=== PATIENT | female | born 1940 | race Hispanic/Latino ===

== ENCOUNTER 2018-07-13 09:28 | Emergency (ER) | payer OTHER ==
--- NOTE | 2018-07-13 10:54 | RAD REPORT ---
EXAM DESCRIPTION: RAD - Knee Right 3 View - 07/13/2018 10:06 am CLINICAL HISTORY: Fall, blunt force trauma to the knee COMPARISON: None. FINDINGS: No gross fracture deformity is seen. However, underlying osteopenia is limiting. This is p articularly true of the lateral tibial plateau. Patient has a joint effusion. Fat fluid level is not clearly identifiable on plain film. Medial and lateral compartment degenerative spurring changes are present along with spurring of the tibial spine. Spurring or tendon calcifications seen at the bennett ceps attachment to the patella. Medial and lateral compartments are slightly narrowed. Dense arterial tree calcifications are present. No foreign body in the soft tissues. IMPRESSION: No gross fracture deformity seen; however, underlying osteopenia limits assessment. This is particularly true in the lateral tibial plateau. Joint effusion is present which can be indirect evidence for acute bony injury. CT imaging of the knee could be performed to evaluate for possible fracture if patient symptoms sugge st fracture. Outpatient MR imaging could be utilized for both occult bony injury assessment and inter nal derangement of the joint.
[2018-07-13] MEDS ORDERED: MEPERIDINE HCL 25 MG/0.5 ML ONE (11:15)
--- NOTE | 2018-07-13 12:04 | RAD REPORT ---
EXAM DESCRIPTION: CT - Knee Right Wo Cont - 07/13/2018 11:42 am CLINICAL HISTORY: Trip and fall, knee pain, abnormal plain films, limited range of motion COMPARISON: Right knee films same date TECHNIQUE: Axial 2 millimeter thick images of the right knee were obtained with sagittal and coronal reformatted images generated and reviewed. The CT scan was performed using dose optimization techniques as appropriate to a performed exam incl uding one or more of the following: Automated exposure control, adjustment of the mA and/or kV accord ing to patient size (this includes techniques or standardized protocols for targeted exams where dose is matched to indication/reason for exam) and use of iterative reconstruction technique. FINDINGS: Distal femur shows no acute fracture change. Knee as a whole is osteopenic. Moderate to la rge marginal spurs are present in both the medial and lateral compartment as well as along the interc ondylar notch. Patella is normally positioned. There are degenerative marginal spurs present. Patella fracture is not seen. Tendon calcification is seen in the distal aspect of the quadriceps tendon at the attachment. No patella tendon injury identifiable. Large lateral tibial plateau marginal spurring present. There are sclerotic changes along the articul ar surface posterior margin of the lateral tibial plateau. No proximal tibia fracture confirmed. Ther e is depression along the posterior margin of the medial tibial plateau without associated fracture l ine. This could be from old trauma. Meniscus and ligament assessment cannot be accurately made on CT imaging. Small to moderate joint effusion is present. No fat fluid level identifiable. IMPRESSION: No acute fracture changes confirmed on this study. Patient has osteopenic and significan t underlying degenerative change. Bone bruising as a source for pain cannot be excluded. Meniscus and ligament injuries cannot be evalu ated on CT imaging. Up to moderate size joint effusion is present without fat fluid level identifiable.
--- NOTE | 2018-07-13 12:11 | ER ---
Nurse's Notes [facility] Name: Hannah Coreas Age: 78 yrs Sex: Female : 1940 Arrival Date: 07/13/2018 Time: 09:35 Bed 20 Private MD: Diagnosis: Contusion of right knee Presentation: 07/13 09:35 Presenting complaint: EMS states: pt tripped last night and landed on Lars. knees, em denies dizziness or LOC, limited ROM on right knee, bruising noted to right knee, denies any other complaint. Transition of care: patient was not received from another setting of care. Onset of symptoms was July 12, 2018. Risk Assessment: Do you want to hurt yourself or someone else? Patient reports no desire to harm self or others. Initial Sepsis Screen: Does the patient meet any 2 criteria? No. Patient's initial sepsis screen is negative. Does the patient have a suspected source of infection? No. Patient's initial sepsis screen is negative. Care prior to arrival: None. 09:35 Method Of Arrival: EMS: [facility] em 09:38 Acuity: FABIANA 4 iw Triage Assessment: 09:41 General: Appears in no apparent distress. uncomfortable, Behavior is calm, cooperative. em Pain: Complains of pain in right knee Pain currently is 10 out of 10 on a pain scale. Historical: - Allergies: 09:41 Codeine; em - Home Meds: :41 amlodipine 10 mg tab 1 tab once daily [Active]; Namenda 10 mg Oral tab 1 tab 2 times em per day [Active]; levothyroxine 75 mcg tab 1 tab once daily [Active]; sotalol 80 mg Oral tab 1 tab 2 times per day [Active]; Xarelto 20 mg Oral tab 1 tab once daily [Active]; furosemide 40 mg Oral tab 1 tab once daily [Active]; hydralazine 50 mg Oral tab 1 tab 2 times per day [Active]; potassium chloride 10 mEq Oral TbTQ 1 tab once daily [Active]; metformin 1,000 mg Oral tab 1 tab 2 times per day [Active]; - PMHx: 09:41 Atrial Fib; COLON CA; Diabetes - IDDM; Hypertension; em - PSHx: 09:41 ; em - Immunization history:: Flu vaccine is not up to date. - Social history:: Smoking status: Patient/guardian denies using tobacco. - Family history:: not pertinent. - Ebola Screening: : Patient negative for fever greater than or equal to 101.5 degrees Fahrenheit, and additional compatible Ebola Virus Disease symptoms Patient denies exposure to infectious person Patient denies travel to an Ebola-affected area in the 21 days before illness onset No symptoms or risks identified at this time. - Hospitalizations: : No recent hospitalization is reported. Screenin:41 Abuse screen: Denies threats or abuse. Nutritional screening: No deficits noted. em Tuberculosis screening: No symptoms or risk factors identified. Fall Risk None identified. Assessment: 09:41 General: Appears in no apparent distress. uncomfortable, Behavior is calm, cooperative. em Pain: Complains of pain in right knee Pain currently is 10 out of 10 on a pain scale. Pain began 1 day ago. Neuro: Level of Consciousness is awake, alert, obeys commands, Oriented to person, place, time, situation, Denies weakness dizziness, headache. Cardiovascular: Patient's skin is warm and dry. Respiratory: Airway is patent Respiratory effort is even, unlabored, Respiratory pattern is regular, symmetrical. Derm: Bruising that is on right knee. Musculoskeletal: Range of motion: limited in right knee Swelling present in right knee. 10:48 Reassessment: Patient appears in no apparent distress at this time. Patient and/or em family updated on plan of care and expected duration. Pain level reassessed. Patient is alert, oriented x 3, equal unlabored respirations, skin warm/dry/pink. 12:00 Reassessment: Patient appears in no apparent distress at this time. Patient and/or em family updated on plan of care and expected duration. Pain level reassessed. Patient is alert, oriented x 3, equal unlabored respirations, skin warm/dry/pink. 13:04 Reassessment: Patient appears in no apparent distress at this time. Patient and/or em family updated on plan of care and expected duration. Pain level reassessed. Patient is alert, oriented x 3, equal unlabored respirations, skin warm/dry/pink. pt soiled, removed old brief, cleaned and wiped, placed in new gown, pending daughter for transportation Patient states feeling better. Vital Signs: 09:41 BP 148 / 60; Pulse 77; Resp 16; Pulse Ox 95% on R/A; Weight 63.5 kg; Height 5 ft. 4 in. em (162.56 cm); Pain 10/10; 10:42 BP 152 / 64; Pulse 88; Resp 16; Pulse Ox 96% on R/A; em 12:00 BP 150 / 58; Pulse 73; Resp 18; Pulse Ox 99% on R/A; em 13:21 BP 148 / 63; Pulse 74; Resp 16; Pulse Ox 97% on R/A; Pain 5/10; em 09:41 Body Mass Index 24.03 (63.50 kg, 162.56 cm) em ED Course: 09:35 Patient arrived in ED. em 09:35 Gerardo Bragg MD is Attending Physician. rn 09:41 Arm band placed on. em 09:41 Patient has correct armband on for positive identification. Bed in low position. Call em light in reach. Side rails up X2. Adult w/ patient. Pulse ox on. NIBP on. 10:03 Triage completed. iw 10:42 Bunny Arciniega LVN is Primary Nurse. em 10:51 XRAY Knee RIGHT 3 view In Process Unspecified. EDMS 11:44 Knee Right Wo Cont In Process Unspecified. EDMS 13:27 No provider procedures requiring assistance completed. Patient did not have IV access em during this emergency room visit. Administered Medications: 11:08 Drug: Demerol 25 mg Route: IM; Site: right deltoid; em 13:30 Follow up: Response: No adverse reaction; Pain is decreased em Outcome: 12:10 Discharge ordered by MD. rn 13:27 Discharged to home via wheelchair. em 13:27 Condition: good 13:27 Discharge instructions given to patient, family, Instructed on discharge instructions, follow up and referral plans. Demonstrated understanding of instructions, follow-up care. 14:05 Patient left the ED. em Signatures: Dispatcher [employer] EDMS Bunny Arciniega LVN LVN em Sharlene Storm RN RN iw Gerardo Bragg MD MD rn
--- NOTE | 2018-07-13 12:12 | EDPHYS ---
Physician Documentation [facility] Name: Hannah Coreas Age: 78 yrs Sex: Female : 1940 Arrival Date: 07/13/2018 Time: 09:35 Bed 20 Private MD: ED Physician Gerardo Bragg HPI: 07/13 09:36 This 78 yrs old Female presents to ER via Unassigned with complaints of right rn knee pain. 09:36 The patient presents with pain. The complaints affect the right knee. Onset: The rn symptoms/episode began/occurred last night. Modifying factors: The symptoms are alleviated by nothing. the symptoms are aggravated by movement, weight bearing, bending knee. Severity of symptoms: At their worst the symptoms were moderate, in the emergency department the symptoms are unchanged. The patient has not experienced similar symptoms in the past. Reports someone at her door last night, got up from recliner, fell forward onto knees, reports hurts to walk and bend knee, + right knee pain, denies other injury or pain. . Historical: - Allergies: 09:41 Codeine; em - Home Meds: 09:41 amlodipine 10 mg tab 1 tab once daily [Active]; Namenda 10 mg Oral tab 1 tab 2 times em per day [Active]; levothyroxine 75 mcg tab 1 tab once daily [Active]; sotalol 80 mg Oral tab 1 tab 2 times per day [Active]; Xarelto 20 mg Oral tab 1 tab once daily [Active]; furosemide 40 mg Oral tab 1 tab once daily [Active]; hydralazine 50 mg Oral tab 1 tab 2 times per day [Active]; potassium chloride 10 mEq Oral TbTQ 1 tab once daily [Active]; metformin 1,000 mg Oral tab 1 tab 2 times per day [Active]; - PMHx: 09:41 Atrial Fib; COLON CA; Diabetes - IDDM; Hypertension; em - PSHx: 09:41 ; em - Immunization history:: Flu vaccine is not up to date. - Social history:: Smoking status: Patient/guardian denies using tobacco. - Family history:: not pertinent. - Ebola Screening: : Patient negative for fever greater than or equal to 101.5 degrees Fahrenheit, and additional compatible Ebola Virus Disease symptoms Patient denies exposure to infectious person Patient denies travel to an Ebola-affected area in the 21 days before illness onset No symptoms or risks identified at this time. - Hospitalizations: : No recent hospitalization is reported. ROS: 09:36 Neck: Negative for injury, pain, and swelling, Cardiovascular: Negative for chest pain, rn palpitations, and edema, Respiratory: Negative for shortness of breath, cough, wheezing, and pleuritic chest pain, Abdomen/GI: Negative for abdominal pain, nausea, vomiting, diarrhea, and constipation, Back: Negative for injury and pain, MS/Extremity: + right knee pain and injury Skin: Negative for injury, rash, and discoloration, Neuro: Negative for headache, weakness, numbness, tingling, and seizure. Exam: 09:36 Constitutional: This is a well developed, well nourished patient who is awake, alert, rn and in no acute distress. Head/Face: Normocephalic, atraumatic. Neck: No neck tenderness MS/ Extremity: Pulses equal, no cyanosis. Neurovascular intact. + mild pain with ROM of right knee with contusion, no open wounds, no hip pain or tenderness, no ankle/foot tenderness. Neuro: Awake and alert, GCS 15, oriented to person, place, time, and situation. Cranial nerves II-XII grossly intact. Motor strength 5/5 in all extremities. Sensory grossly intact. Vital Signs: 09:41 BP 148 / 60; Pulse 77; Resp 16; Pulse Ox 95% on R/A; Weight 63.5 kg; Height 5 ft. 4 in. em (162.56 cm); Pain 10/10; 10:42 BP 152 / 64; Pulse 88; Resp 16; Pulse Ox 96% on R/A; em 12:00 BP 150 / 58; Pulse 73; Resp 18; Pulse Ox 99% on R/A; em 13:21 BP 148 / 63; Pulse 74; Resp 16; Pulse Ox 97% on R/A; Pain 5/10; em 09:41 Body Mass Index 24.03 (63.50 kg, 162.56 cm) em MDM: 09:35 Patient medically screened. rn 12:09 Differential diagnosis: closed fracture, contusion. Data reviewed: vital signs, nurses rn notes, radiologic studies, CT scan, plain films, and as a result, I will discharge patient. Counseling: I had a detailed discussion with the patient and/or guardian regarding: the historical points, exam findings, and any diagnostic results supporting the discharge/admit diagnosis, lab results, radiology results, the need for outpatient follow up, to return to the emergency department if symptoms worsen or persist or if there are any questions or concerns that arise at home. Response to treatment: the patient's symptoms have mildly improved after treatment, and as a result, I will discharge patient. Special discussion: I discussed with the patient/guardian in detail that at this point there is no indication for admission to the hospital. It is understood, however, that if the symptoms persist or worsen the patient needs to return immediately for re-evaluation. 07/13 09:36 Order name: XRAY Knee RIGHT 3 view; Complete Time: 10:56 rn 07/13 11:02 Order name: Knee Right Wo Cont; Complete Time: 12:09 EDMS Administered Medications: 11:08 Drug: Demerol 25 mg Route: IM; Site: right deltoid; em 13:30 Follow up: Response: No adverse reaction; Pain is decreased em Disposition: 07/13/18 12:10 Discharged to Home. Impression: Contusion of right knee. - Condition is Stable. - Discharge Instructions: Knee Pain. - Medication Reconciliation Form, Thank You Letter, Antibiotic Education, Prescription Opioid Use form. - Follow up: Private Physician; When: As needed; Reason: Recheck today's complaints, Re-evaluation by your physician. - Problem is new. - Symptoms have improved. Signatures: Dispatcher [employer] Bunny Hilliard, CONTRACT ATTORNEY CONTRACT ATTORNEY Gerardo Feliciano MD MD international relations professor: (The following items were deleted from the chart) 14:05 12:10 07/13/2018 12:10 Discharged to Home. Impression: Contusion of right knee. em Condition is Stable. Forms are Medication Reconciliation Form, Thank You Letter, Antibiotic Education, Prescription Opioid Use. Follow up: Private Physician; When: As needed; Reason: Recheck today's complaints, Re-evaluation by your physician. Problem is new. Symptoms have improved. rn
[2018-07-13 14:15] VITALS: BP 148/63; O2SAT 97
== END 2018-07-13 14:05 | disposition home or self-care (01) ==
LOC: ER 09:28
DX: S80.01XA Contusion of right knee, initial encounter (principal); W19.XXXA Unspecified fall, initial encounter; Y93.89 Activity, other specified; Y92.9 Unspecified place or not applicable; Z79.01 Long term (current) use of anticoagulants; Z88.5 Allergy status to narcotic agent; Z85.038 Personal history of other malignant neoplasm of large intestine; I10 Essential (primary) hypertension; E11.9 Type 2 diabetes mellitus without complications; I48.91 Unspecified atrial fibrillation
CPT/HCPCS: 73562; 73700; J2175

== ENCOUNTER 2019-03-27 17:52 | Inpatient (IN) | payer OTHER ==
[2019-03-27] MEDS ORDERED: SOTALOL HCL 80 MG TAB ONE (18:18)
--- NOTE | 2019-03-27 18:27 | RAD REPORT ---
EXAM DESCRIPTION: RAD - Chest Single View - 03/27/2019 6:15 pm CLINICAL HISTORY: PALPITATIONS Chest pain. COMPARISON: Chest Single View dated 08/12/2017; Chest Single View dated 07/02/2017; CHEST SINGLE VIEW d ated 08/09/2015; CHEST SINGLE VIEW dated 07/28/2015 FINDINGS: Portable technique limits examination quality. Emphysematous changes are present throughout the lungs. A small ill-defined opacity the right lower l obe and left parahilar region may represent developing infiltrate. The heart is mildly to moderately enlarged. No displaced fractures.Aortic atherosclerosis.
[2019-03-27] MEDS ORDERED: METOPROLOL TARTRATE 5 MG/5 ML INJ IV ONE (18:44)
[2019-03-27 18:56] LABS: Protime INR 1.31
[2019-03-27 19:18] LABS: ALT/SGPT 15 U/L (12-78); AST/SGOT 16 U/L (15-37); Albumin 3.1 g/dL (3.4-5.0); Alkaline Phosphatase 92 U/L (45-117); BUN Blood Urea Nitrogen 13 mg/dL (7-18); Basophils % 0.7 % (0-1.3); Bicarbonate 20 mmol/L (21-32); Bilirubin Direct 0.2 mg/dL (0-0.2); Bilirubin Total 0.7 mg/dL (0.2-1.0); Glucose Level 267 mg/dL (74-106); Hematocrit 41.6 % (36.0-45.0); Lymphocytes % 8.9 % (15.3-44.8); MPV 10.5 fL (7.6-11.3); NT PRO-BNP 1206 pg/mL (<450); Potassium 3.7 mmol/L (3.5-5.1); Protein, Total 7.3 g/dL (6.4-8.2); RBC Red Blood Cell Count 4.42 M/uL (3.86-4.86); Sodium Level 137 mmol/L (136-145); Troponin (Emerg Dept Use Only) < 0.02 ng/mL (0.0-0.045)
[2019-03-27 19:38] LABS: Magnesium 1.1 mg/dL (1.8-2.4)
[2019-03-27] MEDS ORDERED: Magnesium Sulfate 2gm IVPB 2 G/50 ML BAG IV ONE (19:39)
--- NOTE | 2019-03-27 20:58 | ER ---
Nurse's Notes [facility] Name: Hannah Coreas Age: 78 yrs Sex: Female : 1940 Arrival Date: 03/27/2019 Time: 18:03 Bed 4 Private MD: Diagnosis: Atrial fibrillation and flutter-with RVR;Hypomagnesemia Presentation: 03/27 18:04 Presenting complaint: Patient states: c/o generalized weakness and palpitations while iw at [facility] today. EMS arrived to scene and pt HR was in 180's, hx of Afib, currently takes sotalol and xarelto. Transition of care: patient was not received from another setting of care. Onset of symptoms was March 27, 2019. Risk Assessment: Do you want to hurt yourself or someone else? Patient reports no desire to harm self or others. Initial Sepsis Screen: Does the patient meet any 2 criteria? No. Patient's initial sepsis screen is negative. Does the patient have a suspected source of infection? No. Patient's initial sepsis screen is negative. Care prior to arrival: Medication(s) given: diltiazem 10 mg IVP to RAC, IV infiltrated shortly after push given IV initiated. 20 GA, in the left antecubital area. 18:04 Method Of Arrival: EMS: [facility] iw 18:04 Acuity: FABIANA 2 iw 18:11 Care prior to arrival: Glucose check: 285. iw Historical: - Allergies: 18:10 Codeine; iw - Home Meds: 18:54 amlodipine 10 mg tab 1 tab once daily [Active]; aspirin 81 mg Oral chew 1 tab once iw daily [Active]; carvedilol 6.25 mg Oral tab 1 tab 2 times per day [Active]; furosemide 40 mg Oral tab 1 tab once daily [Active]; hydralazine 50 mg Oral tab 1 tab 2 times per day [Active]; levothyroxine 75 mcg tab 1 tab once daily [Active]; metformin 1,000 mg Oral tab 1 tab 2 times per day [Active]; Namenda 10 mg Oral tab 1 tab 2 times per day [Active]; potassium chloride 10 mEq Oral TbTQ 1 tab once daily [Active]; sotalol 80 mg Oral tab 1 tab 2 times per day [Active]; Toujeo SoloStar 300 unit/mL (1.5 mL) subcutaneous inpn 50 units daily [Active]; Vesicare 5 mg Oral tab 0.5 tab once daily [Active]; Xarelto 20 mg Oral tab 1 tab once daily [Active]; - PMHx: 18:10 Atrial Fib; COLON CA; Diabetes - IDDM; Hypertension; iw - PSHx: 18:10 ; iw - Immunization history:: Adult Immunizations up to date. - Social history:: Smoking status: Patient/guardian denies using tobacco. - Ebola Screening: : Patient negative for fever greater than or equal to 101.5 degrees Fahrenheit, and additional compatible Ebola Virus Disease symptoms Patient denies exposure to infectious person Patient denies travel to an Ebola-affected area in the 21 days before illness onset No symptoms or risks identified at this time. - Family history:: not pertinent. - Hospitalizations: : No recent hospitalization is reported. Screenin:11 Abuse screen: Denies threats or abuse. Denies injuries from another. Nutritional iw screening: No deficits noted. Tuberculosis screening: No symptoms or risk factors identified. Fall Risk IV access (20 points). Assessment: 18:05 General: Appears in no apparent distress. comfortable, Behavior is calm, cooperative. iw General: Denies fever, chills. Pain: Denies pain. Neuro: Level of Consciousness is awake, alert, obeys commands, Oriented to person, place, time, situation, Moves all extremities. Cardiovascular: Patient's skin is warm and dry. Cardiovascular: Denies chest pain, lightheadedness, nausea, syncope, Pulses are all present. Rhythm is atrial fibrillation with rapid ventricular response. Respiratory: Respiratory effort is even, unlabored, Respiratory pattern is regular. GI: Abdomen is non-distended, Abd is soft X 4 quads Abd is non tender X 4 quads. Derm: Skin is fragile, is thin, Skin is dry. Musculoskeletal: Range of motion: intact in all extremities. 18:26 Reassessment: Patient appears in no apparent distress at this time. Patient and/or iw family updated on plan of care and expected duration. Pain level reassessed. Patient is alert, oriented x 3, equal unlabored respirations, skin warm/dry/pink. 19:15 Reassessment: Patient appears in no apparent distress at this time. Patient and/or cc3 family updated on plan of care and expected duration. Pain level reassessed. Patient is alert, oriented x 3, equal unlabored respirations, skin warm/dry/pink. Received this female patient from morning shift RN Sharlene as a case of palpitations, known case of Afib. With IV cannula gauge 20 at the right ACV saline locked, another IV cannula gauge 20 at the left ACV saline locked. Patient denies pain at this time. Patient states feeling better. General: Appears in no apparent distress. comfortable, Behavior is calm, cooperative, appropriate for age. Pain: Denies pain. Neuro: Level of Consciousness is awake, alert, obeys commands, Oriented to person, place, time, situation, Appropriate for age Assistant Professor Of Dietetics are equal bilaterally Moves all extremities. Speech is normal, Facial symmetry appears normal, Pupils are PERRLA, Intact. Cardiovascular: Denies chest pain, Heart tones S1 S2 present Capillary refill < 3 seconds Patient's skin is warm and dry. Pulses are all present. Rhythm is atrial fibrillation. Respiratory: Airway is patent Respiratory effort is even, unlabored, Respiratory pattern is regular, symmetrical, Breath sounds are clear bilaterally. GI: Abdomen is round non-distended, Abd is soft X 4 quads Abd is non tender X 4 quads. : No signs and/or symptoms were reported regarding the genitourinary system. EENT: No signs and/or symptoms were reported regarding the EENT system. Derm: Skin is fragile, is thin, Skin is dry, Skin is pink, warm \T\ dry. normal. Musculoskeletal: Range of motion: intact in all extremities. 19:35 Reassessment: Laboratory staff Lashonda called for critical result of Magnesium which cc3 is 1.1 SALES REPRESENTATIVE PRINTING PAPER Grace informed. 20:05 Reassessment: Patient appears in no apparent distress at this time. Patient and/or cc3 family updated on plan of care and expected duration. Pain level reassessed. Patient is alert, oriented x 3, equal unlabored respirations, skin warm/dry/pink. Patient denies pain at this time. 21:05 Reassessment: Patient appears in no apparent distress at this time. Patient and/or cc3 family updated on plan of care and expected duration. Pain level reassessed. Patient is alert, oriented x 3, equal unlabored respirations, skin warm/dry/pink. Dr. Huynh at bedside. 22:11 Reassessment: Patient appears in no apparent distress at this time. Patient and/or aa1 family updated on plan of care and expected duration. Pain level reassessed. Patient is alert, oriented x 3, equal unlabored respirations, skin warm/dry/pink. Attempted to call report to floor, was told nurse will call back shortly. 22:18 Reassessment: Report called to ERMIAS Mercado. aa1 22:50 Reassessment: Patient appears in no apparent distress at this time. Patient and/or cc3 family updated on plan of care and expected duration. Pain level reassessed. Patient is alert, oriented x 3, equal unlabored respirations, skin warm/dry/pink. Patient left ER for admission vitally stable by stretcher escorted by outer diameter technician Malik and the patient's daughter. No valuables left in the patient's room. Patient denies pain at this time. Patient states feeling better. Vital Signs: 18:09 BP 135 / 70; Pulse 135; Resp 18 S; Temp 98.6; Pulse Ox 98% on R/A; Pain 0/10; iw 18:26 BP 141 / 78; Pulse 157; Resp 18 S; Pulse Ox 98% on R/A; iw 18:33 BP 138 / 65; Pulse 150; Resp 18 S; Pain 0/10; ss 18:50 BP 128 / 70; Pulse 117; Resp 18 S; sg 19:05 BP 162 / 75; Pulse 134; Resp 18 S; Pulse Ox 98% on R/A; iw 19:15 BP 162 / 75; Pulse 139; Resp 19 S; Temp 97.7(O); Pulse Ox 94% on R/A; Pain 0/10; cc3 20:06 BP 128 / 76; Pulse 145; Resp 18 S; Pulse Ox 96% on R/A; cc3 21:45 BP 133 / 76; Pulse 133; Resp 21 S; Pulse Ox 96% on R/A; cc3 22:09 BP 139 / 87; Pulse 126; Resp 20; Pulse Ox 95% on R/A; Pain 0/10; aa1 22:45 BP 137 / 83; Pulse 130; Resp 18 S; Pulse Ox 96% ; Pain 0/10; cc3 Vitals: 18:34 Cardiac Rhythm Assessment Atrial fibrillation W/rapid ventricular response. ss 19:05 Cardiac Rhythm Assessment Atrial fibrillation W/rapid ventricular response. iw ED Course: 18:03 Patient arrived in ED. iw 18:04 Gerardo Bragg MD is Attending Physician. rn 18:09 Triage completed. iw 18:09 Arm band placed on. iw 18:10 XRAY Chest (1 view) In Process Unspecified. EDMS 18:11 Maintain EMS IV. Dressing intact. Good blood return noted. Site clean \T\ dry. Gauge \T\ iw site: 20 LAC. 18:25 Sharlene Storm, RN is Primary Nurse. iw 18:26 Maintain EMS IV. Dressing intact. Good blood return noted. Site clean \T\ dry. Gauge \T\ iw site: 20 RAC. 18:26 Initial lab(s) drawn, by me, sent to lab. ca1 18:32 Patient has correct armband on for positive identification. Bed in low position. Call ss light in reach. Side rails up X2. Adult w/ patient. desk monitor on. Pulse ox on. NIBP on. 19:33 Grace Lewis FNP-C is PHCP. snw 19:33 Magali Bhardwaj is Primary Nurse. cc3 20:56 Hector Huynh DO is Hospitalizing Provider. snw 22:11 No provider procedures requiring assistance completed. Patient admitted, IV remains in aa1 place. Administered Medications: 18:11 Drug: NS 0.9% 500 ml Route: IV; Rate: bolus; Site: left antecubital; iw 18:26 Drug: Sotalol 80 mg Route: PO; iw 19:15 Follow up: Response: No adverse reaction cc3 18:50 Drug: Metoprolol 5 mg Route: IVP; Site: left antecubital; sg 19:15 Follow up: Response: No adverse reaction cc3 18:55 Drug: Metoprolol 5 mg Route: IVP; Site: left antecubital; iw 19:15 Follow up: Response: No adverse reaction cc3 19:40 Drug: Magnesium Sulfate 2 grams Route: IVPB; Infused Over: 2 hrs; Site: left cc3 antecubital; 22:00 Follow up: Response: No adverse reaction; IV Status: Completed infusion; IV Intake: [id number] Intake: 22:00 IV: 50ml; Total: 50ml. cc3 Outcome: 20:57 Decision to Hospitalize by Provider. snw 22:18 Admitted to Tele accompanied by felecia, via stretcher, room 228, with chart, Report aa1 called to ERMIAS Mercado 22:18 Condition: stable 22:18 Instructed on the need for admit, Demonstrated understanding of instructions. 22:58 Patient left the ED. cc3 Signatures: Dispatcher [employer] EDMS Milan Turk RN RN sg Aye Eldridge RN RN aa1 Grace Lewis, EXTRUSION DIE CORRECTOR-C EXTRUSION DIE CORRECTOR-Csnw Sharlene Storm RN RN Gerardo Bragg MD MD rn Smirch, Shelby, RN RN Magali Bhardwaj cc3 Valeria Ashraf RN RN ca1 Corrections: (The following items were deleted from the chart) 18:50 18:50 BP 133 / 63; Pulse 117bpm; Resp 18bpm; Spontaneous; sg sg 18:52 18:05 General: Appears in no apparent distress. comfortable, Behavior is calm, iw cooperative, 18:52 18:05 Pain: Denies pain. [facility] 18:52 18:05 Neuro: Level of Consciousness is awake, alert, obeys commands, Oriented to iw person, place, time, situation, Moves all extremities. 18:52 18:05 Cardiovascular: Patient's skin is warm and dry. [facility] 18:52 18:05 Respiratory: Respiratory effort is even, unlabored, Respiratory pattern is iw regular, ss 18:52 18:05 Cardiovascular: Denies chest pain, lightheadedness, nausea, syncope, Pulses are iw all present. Rhythm is atrial fibrillation with rapid ventricular response 18:52 18:05 GI: Abdomen is non-distended, Abd is soft X 4 quads Abd is non tender X 4 quads [facility] 18:52 18:05 Derm: Skin is fragile, is thin, Skin is dry, iw 18:52 18:05 Musculoskeletal: Range of motion: intact in all extremities, [facility] 18:52 18:05 General: Denies fever, chills, iw 22:47 19:15 BP 162 / 75; Pulse 139bpm; Resp 19bpm; Spontaneous; Pulse Ox 94% RA; Temp 97.7F cc3 Oral; cc3
--- NOTE | 2019-03-27 20:59 | EDPHYS ---
Physician Documentation [facility] Name: Hannah Coreas Age: 78 yrs Sex: Female : 1940 Arrival Date: 03/27/2019 Time: 18:03 Bed 4 Private MD: ED Physician Gerardo Bragg HPI: 03/27 18:37 This 78 yrs old Female presents to ER via EMS with complaints of General rn Weakness, Palpitations. 18:37 The patient presents with a history of irregular heart beat, heart racing. Context: The rn symptoms occur with light activity. Onset: The symptoms/episode began/occurred today, 1 hour(s) ago. Duration: The patient or guardian reports a single episode, that is still ongoing. Modifying factors: The symptoms are aggravated by nothing. The symptoms are alleviated by nothing. Severity of symptoms: At their worst the symptoms were moderate in the emergency department the symptoms are unchanged. The patient has experienced similar episodes in the past. [facility], felt generalized weakness, palpitations, and started sweating. [place] fine prior. Denies sob and chest pain. NO abd pain. takes sotalol for afib. States compliant with meds. Historical: - Allergies: 18:10 Codeine; iw - Home Meds: 18:54 amlodipine 10 mg tab 1 tab once daily [Active]; aspirin 81 mg Oral chew 1 tab once iw daily [Active]; carvedilol 6.25 mg Oral tab 1 tab 2 times per day [Active]; furosemide 40 mg Oral tab 1 tab once daily [Active]; hydralazine 50 mg Oral tab 1 tab 2 times per day [Active]; levothyroxine 75 mcg tab 1 tab once daily [Active]; metformin 1,000 mg Oral tab 1 tab 2 times per day [Active]; Namenda 10 mg Oral tab 1 tab 2 times per day [Active]; potassium chloride 10 mEq Oral TbTQ 1 tab once daily [Active]; sotalol 80 mg Oral tab 1 tab 2 times per day [Active]; Toujeo SoloStar 300 unit/mL (1.5 mL) subcutaneous inpn 50 units daily [Active]; Vesicare 5 mg Oral tab 0.5 tab once daily [Active]; Xarelto 20 mg Oral tab 1 tab once daily [Active]; - PMHx: 18:10 Atrial Fib; COLON CA; Diabetes - IDDM; Hypertension; iw - PSHx: 18:10 ; iw - Immunization history:: Adult Immunizations up to date. - Social history:: Smoking status: Patient/guardian denies using tobacco. - Ebola Screening: : Patient negative for fever greater than or equal to 101.5 degrees Fahrenheit, and additional compatible Ebola Virus Disease symptoms Patient denies exposure to infectious person Patient denies travel to an Ebola-affected area in the 21 days before illness onset No symptoms or risks identified at this time. - Family history:: not pertinent. - Hospitalizations: : No recent hospitalization is reported. ROS: 18:37 Constitutional: Negative for fever, chills, and weight loss, Eyes: Negative for injury, rn pain, redness, and discharge, Neck: Negative for injury, pain, and swelling, Cardiovascular: Negative for chest pain, and edema, Respiratory: Negative for shortness of breath, cough, wheezing, and pleuritic chest pain, Abdomen/GI: Negative for abdominal pain, nausea, vomiting, diarrhea, and constipation, MS/Extremity: Negative for injury and deformity, Skin: Negative for injury, rash, and discoloration, Neuro: Negative for headache, numbness, tingling, and seizure. Exam: 18:37 Constitutional: This is a well developed, well nourished patient who is awake, alert, rn and in no acute distress. Head/Face: Normocephalic, atraumatic. ENT: MMM Neck: Trachea midline, no thyromegaly or masses palpated, and no cervical lymphadenopathy. Supple, full range of motion without nuchal rigidity, or vertebral point tenderness. No Meningismus. Cardiovascular: Tachycardic, irregular, no murmur Respiratory: Lungs have equal breath sounds bilaterally, clear to auscultation. No increased work of breathing, no retractions or nasal flaring. Abdomen/GI: soft, non-tender Skin: Warm, dry MS/ Extremity: Pulses equal, no cyanosis. Neurovascular intact. Full, normal range of motion. Equal circumference. Neuro: Awake and alert, GCS 15, oriented to person, place, time, and situation. Cranial nerves II-XII grossly intact. Motor strength 5/5 in all extremities. Sensory grossly intact. Cerebellar exam normal. Vital Signs: 18:09 BP 135 / 70; Pulse 135; Resp 18 S; Temp 98.6; Pulse Ox 98% on R/A; Pain 0/10; iw 18:26 BP 141 / 78; Pulse 157; Resp 18 S; Pulse Ox 98% on R/A; iw 18:33 BP 138 / 65; Pulse 150; Resp 18 S; Pain 0/10; ss 18:50 BP 128 / 70; Pulse 117; Resp 18 S; sg 19:05 BP 162 / 75; Pulse 134; Resp 18 S; Pulse Ox 98% on R/A; iw 19:15 BP 162 / 75; Pulse 139; Resp 19 S; Temp 97.7(O); Pulse Ox 94% on R/A; Pain 0/10; cc3 20:06 BP 128 / 76; Pulse 145; Resp 18 S; Pulse Ox 96% on R/A; cc3 21:45 BP 133 / 76; Pulse 133; Resp 21 S; Pulse Ox 96% on R/A; cc3 22:09 BP 139 / 87; Pulse 126; Resp 20; Pulse Ox 95% on R/A; Pain 0/10; aa1 22:45 BP 137 / 83; Pulse 130; Resp 18 S; Pulse Ox 96% ; Pain 0/10; cc3 MDM: 18:04 Patient medically screened. rn 20:55 Data reviewed: vital signs, nurses notes. Data interpreted: Pulse oximetry: on room air snw is 96 %. Interpretation: acceptable. Counseling: I had a detailed discussion with the patient and/or guardian regarding: the historical points, exam findings, and any diagnostic results supporting the discharge/admit diagnosis, lab results, radiology results, the need for further work-up and treatment in the hospital. Physician consultation: Hector Huynh DO was called at 20:55, was contacted at 20:55, regarding admission, to the telemetry unit. 03/27 18:05 Order name: Basic Metabolic Panel; Complete Time: 19:41 rn 03/27 18:05 Order name: CBC with Diff; Complete Time: 19:37 rn 03/27 18:05 Order name: LFT's; Complete Time: 19:41 rn 03/27 18:05 Order name: Magnesium; Complete Time: 19:41 rn 03/27 18:05 Order name: NT PRO-BNP; Complete Time: 19:41 rn 03/27 18:05 Order name: PT-INR; Complete Time: 19:37 rn 03/27 18:05 Order name: Troponin (emerg Dept Use Only); Complete Time: 19:41 rn 03/27 18:05 Order name: XRAY Chest (1 view); Complete Time: 18:37 rn 03/27 18:05 Order name: EKG; Complete Time: 18:06 rn 03/27 18:05 Order name: Cardiac monitoring; Complete Time: 18:11 rn 03/27 18:05 Order name: EKG - Nurse/Tech; Complete Time: 18:11 rn 03/27 18:05 Order name: IV Saline Lock; Complete Time: 18:11 rn 03/27 18:05 Order name: Labs collected and sent; Complete Time: 18:11 rn 03/27 18:05 Order name: O2 Per Protocol; Complete Time: 18:12 rn 03/27 18:05 Order name: O2 Sat Monitoring; Complete Time: 18:12 rn Administered Medications: 18:11 Drug: NS 0.9% 500 ml Route: IV; Rate: bolus; Site: left antecubital; iw 18:26 Drug: Sotalol 80 mg Route: PO; iw 19:15 Follow up: Response: No adverse reaction cc3 18:50 Drug: Metoprolol 5 mg Route: IVP; Site: left antecubital; sg 19:15 Follow up: Response: No adverse reaction cc3 18:55 Drug: Metoprolol 5 mg Route: IVP; Site: left antecubital; iw 19:15 Follow up: Response: No adverse reaction cc3 19:40 Drug: Magnesium Sulfate 2 grams Route: IVPB; Infused Over: 2 hrs; Site: left cc3 antecubital; 22:00 Follow up: Response: No adverse reaction; IV Status: Completed infusion; IV Intake: [id number] Disposition: 03/27/19 20:57 Hospitalization ordered by Hector Huynh for Observation. Preliminary diagnosis are Atrial fibrillation and flutter - with RVR, Hypomagnesemia. - Bed requested for Telemetry/MedSurg (observation). - Status is Observation. cc3 - Condition is Stable. - Problem is an acute exacerbation. - Symptoms have worsened. UTI on Admission? No Addendum: 03/30/2019 07:02 Co-signature as Attending Physician, Gerardo Bragg MD. r n Signatures: Dispatcher [employer] EDMS Milan Turk RN RN sg Grace Lewis, MANAGER FUNCTIONAL-C MANAGER FUNCTIONAL-Csnw Sharlene Storm, RN Gerardo Romo MD MD rn Garcia, Cindy, RN RN cg Cordel, Charlene cc3 Corrections: (The following items were deleted from the chart) 03/27 21:02 20:57 Hospitalization Ordered by [facility] for Observation. Preliminary sn diagnosis is Atrial fibrillation and flutter - with RVR. Bed requested for Telemetry/MedSurg (observation). Status is Observation. Condition is Stable. Problem is an acute exacerbation. Symptoms have worsened. UTI on Admission? No. snw 21:51 21:02 03/27/2019 20:57 Hospitalization Ordered by [facility] for Observation. cg Preliminary diagnosis is Atrial fibrillation and flutter - with RVR; Hypomagnesemia. Bed requested for Telemetry/MedSurg (observation). Status is Observation. Condition is Stable. Problem is an acute exacerbation. Symptoms have worsened. UTI on Admission? No. snw 22:37 21:51 03/27/2019 20:57 Hospitalization Ordered by [facility] for Observation. cg Preliminary diagnosis is Atrial fibrillation and flutter - with RVR; Hypomagnesemia. Bed requested for Telemetry/MedSurg (observation). Status is Observation. Condition is Stable. Problem is an acute exacerbation. Symptoms have worsened. UTI on Admission? No. cg 22:58 22:37 03/27/2019 20:57 Hospitalization Ordered by [facility] for Observation. cc3 Preliminary diagnosis is Atrial fibrillation and flutter - with RVR; Hypomagnesemia. Bed requested for Telemetry/MedSurg (observation). Status is Observation. Condition is Stable. Problem is an acute exacerbation. Symptoms have worsened. UTI on Admission? No. cg
--- NOTE | 2019-03-27 22:09 | P.HP ---
Certification for Inpatient Patient admitted to: Observation With expected LOS: <2 Midnights Patient will require the following post-hospital care: None Practitioner: I am a practitioner with admitting privileges, knowledge of patient current condition, hospital course, and medical plan of care. Services: Services provided to patient in accordance with Admission requirements found in Title 42 Section 412.3 of the Code of Federal Regulations Patient History Date of Service: 03/27/19 Primary Care Provider: Dr. Shanks (Hospitalist covering while he is on Vacation) ; Card-Dr. Sauceda Reason for admission: Palpitations, shortness of breath History of Present Illness: 78-year-old female presented to the emergency room with palpitations and shortness of breath. Patient with history of chronic atrial fibrillation on chronic anti coagulation therapy, hypertension, diabetes mellitus type 2 insulin dependent, dementia, hypothyroidism. Patient presented to the emergency room with palpitations and shortness of breath. The patient was at [facility] when she became very weak. She was brought in by EMS. Patient denied any fever, chills. Daughter had noted that she had been feeling weak over the past week. In the ER patient found to have atrial fibrillation with a rate in the 180s. Patient was given calcium channel isaiah IV. Rate improved. On lab white count 11.2, hemoglobin 13. Sodium 137, potassium 3.7. BUN of 13 creatinine 0.84 with a GFR 65. Glucose 267. Magnesium 1.1. This was replaced in the emergency room. Troponin unremarkable. Chest x-rayed showed emphysematous changes with possible right lower lobe pneumonia. Patient admitted for further evaluation and treatment. When I saw the patient the ER, she appeared stable. Rate improved to the 120s. Family at bedside. Daughter reports blood pressures have remained elevated. Patient recently seen by PCP this past week. Allergies codeine [Codeine] Allergy (Verified 07/28/15 01:01) Itching/Hives/Rash Home medications list reviewed: Yes Home Medications: Amlodipine [Norvasc*] 10 mg PO DAILY 10/19/12 Atorvastatin Calcium [Lipitor*] 10 mg PO BEDTIME 10/19/12 Furosemide [Lasix*] 40 mg PO DAILY 10/19/12 Glipizide [Glucotrol Xl] 10 mg PO BIDWM 10/19/12 Hydralazine [Apresoline*] 50 mg PO BID 10/19/12 Losartan Potassium [Cozaar] 100 mg PO DAILY 10/19/12 Metformin ER [Glucophage ER*] 1,000 mg PO DAILY 10/19/12 Potassium Chloride [K-Dur] 10 meq PO DAILY 10/19/12 Solifenacin [Vesicare*] 2.5 mg PO DAILY 10/19/12 Sotalol HCl [Betapace*] 80 mg PO BID 10/19/12 Magnesium Oxide [Mag 0X*] 400 mg PO DAILY #15 tab 07/29/15 Rivaroxaban [Xarelto] 20 mg PO DAILY #30 tablet 07/29/15 - Past Medical/Surgical History Diabetic: Yes -: Hypertension -: Atrial fibrillation on chronic anti coagulation therapy -: Diabetes mellitus type 2, insulin-dependent -: History of pulmonary nodules -: History of colon cancer -: Hyperlipidemia -: Dementia -: Urinary incontinence -: Hypothyroidism -: Tubal ligation -: Cholecystectomy -: Hysterectomy -: Partial colectomy -: VARICOSE VEIN SX Psychosocial/ Personal History: Patient lives at home with son - Family History Brother -: Heart disease, Hypertension, Diabetes - Social History Smoking Status: Never smoker Alcohol use: No CD- Drugs: No Caffeine use: Yes Place of Residence: Home Review of Systems General: Weakness, As per HPI Eyes: Unremarkable ENT: Unremarkable Respiratory: Shortness of Breath, As per HPI Cardiovascular: Palpitations, As per HPI Gastrointestinal: Unremarkable Genitourinary: Unremarkable Musculoskeletal: Unremarkable Integumentary: Unremarkable Neurological: Unremarkable Lymphatics: Unremarkable Physical Examination - Physical Exam General: Alert, In no apparent distress, Oriented x3, Cooperative HEENT: Atraumatic, Normocephalic, PERRLA, Mucous membr. moist/pink Neck: Supple Respiratory: Clear to auscultation bilaterally, Normal air movement Cardiovascular: Irregular heart rate/rhythm (Atrial fibrillation, rate 120) Gastrointestinal: Normal bowel sounds, Soft and benign, Non-distended, No ascites, No tenderness, No masses, No rebound, No guarding Musculoskeletal: No erythema, No tenderness, No warmth Integumentary: No tenderness/swelling, No erythema, No warmth, No cyanosis Neurological: Normal speech, Normal strength at 5/5 x4 extr, Normal tone, Normal affect - Studies Laboratory Data (last 24 hrs) 03/27/19 18:25: PT 15.3 H, INR 1.31 03/27/19 18:25: WBC 11.2 H D, Hgb 13.3, Hct 41.6, Plt Count 219 D 03/27/19 18:25: Sodium 137, Potassium 3.7, BUN 13, Creatinine 0.84, Glucose 267 H, Magnesium 1.1 L*, Total Bilirubin 0.7, AST 16, ALT 15, Alkaline Phosphatase 92 Assessment and Plan - Plan Impression: Palpitations, shortness of breath secondary to atrial fibrillation with RVR on chronic anti coagulation therapy Possible right lower lobe pneumonia Hypertension Diabetes mellitus type 2 insulin-dependent Hypothyroidism Dementia Hypomagnesia Plan: Palpitations, shortness of breath secondary to atrial fibrillation with RVR on chronic anti coagulation therapy: Patient admitted for further evaluation and observation. Will continue to monitor on telemetry and cardiac enzymes. Case discussed with cardiology. Will increase her sotalol to 120 mg 1 pill twice daily. Will continue with Xarelto 20 mg daily. Will also continue with Lasix and potassium replacement. Recheck echocardiogram in the morning. Daytime hospitalist will continue her care in the morning. Anticipate discharge tomorrow with clinical improvement and clearance by Cardiology. Possible right lower lobe pneumonia: Will check pro calcitonin. X-ray shows possible pneumonia. Will obtain blood and sputum culture. Will recheck chest x -ray-PA and lateral tomorrow. Will start Rocephin and Zithromax empirically. Patient may not require antibiotic at discharge pending pro calcitonin and chest x-ray. Hypertension: Blood pressures have remained elevated at home. Will continue with Norvasc 10 mg daily, hydralazine 50 mg 1 pill twice daily. Will monitor and adjust appropriately. Diabetes mellitus type 2 insulin-dependent: Will provide Lantus tonight. Will provide sliding scale and monitor Accu-Cheks. Hypothyroidism: Continue with levothyroxine 75 mcg daily. Recheck tsh and free T4 in the morning. Dementia: Continue with Namenda. Hypomagnesia: Will monitor and replace appropriately. Discharge Plan: Home Plan to discharge in: 24 Hours - Advance Directives Does patient have a Living Will: No Does patient have a Durable POA for Healthcare: No - Code Status/Comfort Care Code Status Assessed: Yes (Patient is full code) Time Spent Managing Pts Care (In Minutes): 55
[2019-03-27] MEDS ORDERED: ONDANSETRON 4 MG/2 ML VIAL IV PRN (22:58)
[2019-03-27] MEDS ORDERED: GLUCAGON 1 MG/VIAL IM PRN (22:58)
[2019-03-27] MEDS ORDERED: D50W 25 GM/50 ML SYRINGE IV PRN (22:58)
[2019-03-27] MEDS ORDERED: ACETAMINOPHEN 500 MG TAB PO PRN (22:58)
[2019-03-27 23:13] VITALS: BMI 23.3
[2019-03-27] MEDS ORDERED: PNEUMOCOCCAL VACCINE 0.5 ML IMVAC ONE (23:27)
[2019-03-28] MEDS: SOTALOL HCL 80 MG TAB PO ONE ×2 (00:06→23:30)
[2019-03-28] MEDS: RIVAROXABAN 10 MG TABLET PO SCH ×2 (00:07→17:44)
[2019-03-28] MEDS: SOTALOL HCL 80 MG TAB PO SCH ×2 (05:33→20:12)
[2019-03-28] MEDS: LEVOTHYROXINE SOD 0.075 MG TAB PO SCH (05:34)
[2019-03-28 06:00] LABS: Absolute Lymphocytes (CBC) 1.6 K/uL (0.7-4.9); Basophils % 0.8 % (0-1.3); Hematocrit 35.4 % (36.0-45.0); Lymphocytes % 19.4 % (15.3-44.8); MPV 10.1 fL (7.6-11.3); RBC Red Blood Cell Count 3.87 M/uL (3.86-4.86)
[2019-03-28 06:27] LABS: Urine Appearance CLOUDY; Urine Bilirubin NEGATIVE (NEG); Urine Blood NEGATIVE (NEG); Urine Color YELLOW; Urine Glucose NEGATIVE (NEG); Urine Protein NEGATIVE (NEG); Urine Specific Gravity <=1.005 (1.005-1.030); Urine pH 5.5 (5.0-7.0)
[2019-03-28 06:29] LABS: Urine Microscopic Reflex ORDER UMIC
[2019-03-28 06:34] LABS: BUN Blood Urea Nitrogen 10 mg/dL (7-18); Bicarbonate 24 mmol/L (21-32); CKMB Creatine Kinase MB 1.5 ng/mL (0.3-3.6); Creatine Phosphokinase 26 U/L (26-192); Glucose Level 182 mg/dL (74-106); HDL Cholesterol 39 mg/dL (40-60); LDL Cholesterol, Calculated 79 (<130); Magnesium 1.7 mg/dL (1.8-2.4); Potassium 3.4 mmol/L (3.5-5.1); Sodium Level 139 mmol/L (136-145); Thyroid Stimulating Hormone 0.254 uIU/mL (0.360-3.740); Troponin I < 0.02 ng/mL (0.0-0.045)
--- NOTE | 2019-03-28 06:34 | EKG ---
Test Date: 2019-03-27 Test Time: 17:57:03 Oil Treater: LUZ MEASUREMENT RESULTS: Intervals: Rate: 126 IA: QRSD: 130 QT: 378 QTc: 547 [place]: P: IA: QRS: -71 T: 64 INTERPRETIVE STATEMENTS: Atrial fibrillation with rapid ventricular response with premature ventricular or aberrantly conducted complexes Right bundle branch block Abnormal ECG Compared to ECG 08/12/2017 08:04:38 Ventricular premature complex(es) now present Sinus rhythm no longer present Electronically Signed On 03-28-19 06:34:32 CDT by Barron Sauceda
[2019-03-28 07:02] LABS: Urine Bacteria >50 /HPF (<20); Urine Culture Reflex Order REFLEXED; Urine RBC <5 /HPF (NONE SEEN)
[2019-03-28] MEDS: INSULIN -REGULAR HUMAN 50 UNIT/0.5 ML ML SQ SCH ×4 (07:30→21:00)
[2019-03-28] MEDS: ASPIRIN EC 81 MG TAB PO SCH (08:03)
[2019-03-28] MEDS: AMLODIPINE 10 MG TAB PO SCH (08:04)
[2019-03-28] MEDS: FUROSEMIDE 40 MG TABLET PO SCH (08:05)
[2019-03-28] MEDS: MEMANTINE HCL 10 MG TABLET PO SCH ×2 (08:06→22:36)
[2019-03-28] MEDS: HYDRALAZINE HCL 25 MG TABLET PO SCH ×2 (08:06→22:35)
--- NOTE | 2019-03-28 08:27 | RAD REPORT ---
EXAM DESCRIPTION: RAD - Chest Pa And Lat (2 Views) - 03/28/2019 6:50 am CLINICAL HISTORY: follow up possible RLL pneumonia Chest pain. COMPARISON: Chest Single View dated 03/27/2019; Chest Single View dated 08/12/2017; Chest Single View dated 07/02/2017; CHEST SINGLE VIEW dated 08/09/2015 FINDINGS: Emphysematous changes are present. Poorly defined opacity in the left parahilar region and right lower lobe appear essentially unchanged. Infiltrate is possible, however scarring or atelectas is is also a possibility. The heart is upper limit normal in size. No displaced fractures. Aortic ath erosclerosis. IMPRESSION: Stable chest since 03/27/2019.
[2019-03-28] MEDS ORDERED: CEFTRIAXONE 1 GM/NS 50 ML 1 GM/50 ML BAG IV SCH (09:00)
[2019-03-28] MEDS: CEFTRIAXONE/SWI 1gm 1 GM/10 ML SYR IV SCH (09:10)
[2019-03-28] MEDS: AZITHROMYCIN IV 500 MG in NA CHLORIDE 0.9% 250 ML IVPB SCH (11:17)
--- NOTE | 2019-03-28 12:07 | CON ---
Reason For Consult: Atrial fibrillation. History Of Present Illness: Ms. Coreas has had previous episodes of atrial fibrillation. She has bee n well controlled on sotalol, but went back in atrial fibrillation yesterday. No particular thing wa s seen that was causing the problem, although there is a slight infiltrate on her lung perihilar, so there may be underlying pneumonia. There is only that infiltrate, not much going with the way of sym ptoms or lab tests. The patient takes sotalol 80 b.i.d. and Xarelto 20 mg daily and has continued to do that. Her dose of sotalol has been increased to 120 b.i.d. The patient does not use tobacco. S he has never had myocardial infarction or stroke. Allergies: SHE IS ALLERGIC TO CODEINE. Medications: She takes amlodipine, atorvastatin, furosemide, glipizide, hydralazine, losartan, metfo rmin, potassium, solifenacin, Betapace 80 b.i.d., magnesium oxide, and Xarelto 20. Physical Examination: General: She appears to be her stated age, 5 feet 2 inches, 127 pounds. She has physical exam evide nce of osteoporosis. Alert, oriented, pleasant, not in distress. Vital Signs: Blood pressure 128/79, heart rate 120 irregularly irregular. Abdomen: Soft. Extremities: Normal. Impression: Atrial fibrillation may be due to pneumonia. She is being treated with ceftriaxone. We will increase her Betapace, and by tomorrow, if she is still in , we will consider a direct-current cardioversion. SAMIR Voice ID: [id number] Report ID: [id number]
[2019-03-28 13:40] LABS: CKMB Creatine Kinase MB 1.3 ng/mL (0.3-3.6); Creatine Phosphokinase 30 U/L (26-192); Troponin I < 0.02 ng/mL (0.0-0.045)
--- NOTE | 2019-03-28 13:44 | P.PN ---
Subjective Date of Service: 03/28/19 Primary Care Provider: Dr. Shanks (Hospitalist covering while he is on Vacation) ; Card-Dr. Sauceda Chief Complaint: Palpitations, shortness of breath Subjective: No C/O voiced Patient seen and examined at bedside. No family at bedside. Chart reviewed and case discussed with nursing staff. No acute events noted overnight No complaints this morning Review of Systems 10-point ROS is otherwise unremarkable Physical Examination - Vital Signs Temperature: 98.2 F Blood Pressure: 144/90 Pulse: 121 Respirations: 16 Pulse Ox (%): 94 - Physical Exam General: Alert, In no apparent distress, Oriented x3 HEENT: Atraumatic, PERRLA, EOMI Neck: Supple, JVD not distended Respiratory: Clear to auscultation bilaterally, Normal air movement Cardiovascular: Normal S1 S2, Irregular heart rate/rhythm Gastrointestinal: Normal bowel sounds, No tenderness Musculoskeletal: No tenderness Integumentary: No rashes Neurological: Normal speech, Normal tone, Normal affect Lymphatics: No axilla or inguinal lymphadenopathy - Studies Laboratory Data (last 24 hrs) 03/28/19 05:13: Sodium 139, Potassium 3.4 L, BUN 10, Creatinine 0.63, Glucose 182 H, Magnesium 1.7 L D, Troponin I < 0.02, Triglycerides 118, Cholesterol 142 , HDL Cholesterol 39 L, Cholesterol/HDL Ratio 3.64 03/28/19 05:13: WBC 8.4 D, Hgb 12.2, Hct 35.4 L, Plt Count 179 03/27/19 18:25: PT 15.3 H, INR 1.31 03/27/19 18:25: WBC 11.2 H D, Hgb 13.3, Hct 41.6, Plt Count 219 D 03/27/19 18:25: Sodium 137, Potassium 3.7, BUN 13, Creatinine 0.84, Glucose 267 H, Magnesium 1.1 L*, Total Bilirubin 0.7, AST 16, ALT 15, Alkaline Phosphatase 92 Microbiology Data (last 24 hrs): 03/27/19 23:29 Blood - Blood Anaerobic Blood Culture - Final Assessment And Plan - Plan Symptomatic atrial fibrillation with RVR on chronic anti coagulation therapy: -continue to monitor on telemetry and cardiac enzymes. -cardiology consulted. -continue sotalol 120 mg b.i.d. -continue Xarelto 20 mg daily -echo ordered, pending -if continues to be in atrial fibrillation tomorrow, cardiology considering cardioversion at that time. Possible right lower lobe pneumonia: -pro calcitonin negative, no evidence of sepsis. -cultures pending -repeat chest x-ray done today, no changes from prior. Continues to have area of changes that may be infiltrates versus chronic scarring -will continue IV antibiotics at this time Hypertension: -Continue with Norvasc 10 mg daily, hydralazine 50 mg 1 pill twice daily. Will monitor and adjust appropriately. Diabetes mellitus type 2 insulin-dependent: Continue sliding scale and monitor Accu-Cheks. Hypothyroidism: -Continue with levothyroxine 75 mcg daily. Recheck tsh and free T4 in the morning. Dementia: Continue with Namenda. Hypomagnesia: Will monitor and replace appropriately. Disposition: Possible cardioversion tomorrow if continues to be to fibrillation.
[2019-03-28] MEDS ORDERED: MAGNESIUM SULFATE 1 gm IVPB 1 GM/100 ML BAG IV ONE (14:00)
--- NOTE | 2019-03-28 18:02 | ECHO ---
HEIGHT: 5 ft 2 in WEIGHT: 127 lb 8 oz DATE OF STUDY: 03/28/[address]: Hector Huynh DO 2-DIMENSIONAL: YES M.MODE: YES DOPPLER: YES COLOR FLOW: YES TDS: PORTABLE: DEFINITY: BUBBLE STUDY: DIAGNOSIS: ATRIAL FIBRILLATION WITH RVR CARDIAC HISTORY: CATHERIZATION: NO SURGERY: NO PROSTHETIC VALVE: NO PACEMAKER: NO MEASUREMENTS (cm) DIASTOLIC (NORMALS) SYSTOLIC (NORMALS) IVSd 1.0 (0.6-1.2) LA Diam 3.9 (1.9-4.0) LVEF 50-55% LVIDd 4.1 (3.5-5.7) LVIDs 3.3 (2.0-3.5) %FS 18% LVPWd 1.1 (0.6-1.2) Ao Diam 2.8 (2.0-3.7) 2 DIMENSIONAL ASSESSMENT: RIGHT ATRIUM: NORMAL LEFT ATRIUM: DILATED RIGHT VENTRICLE: NORMAL LEFT VENTRICLE: NORMAL TRICUSPID VALVE: NORMAL MITRAL VALVE: NORMAL PULMONIC VALVE: NORMAL AORTIC VALVE: NORMAL PERICARDIAL EFFUSION: NONE AORTIC ROOT: NORMAL LEFT VENTRICULAR WALL MOTION: NORMAL DOPPLER/COLOR FLOW: MILD AORTIC REGURGITATION, MITRAL REGURGITATION AND TRICUSPID REGURGITATION. NORMAL RIGHT VENTRICULAR SYSTOLIC PRESSURE. COMMENTS: NORMAL LEFT VENTRICULAR EJECTION FRACTION. DILATED LEFT ATRIUM. AFIB HEART RATE 70-100 BEATS PER MINUTE. MILD AORTIC REGURGITATION, MITRAL REGURGITATION AND TRICUSPID REGURGITATION. TECHNOLOGIST: ILANA VARGAS
[2019-03-28] MEDS ORDERED: INSULIN GLARGINE 100 UNITS/ML SQ SCH (21:00)
[2019-03-28] MEDS ORDERED: POTASSIUM CL SA 10 MEQ TAB PO ONE (21:00)
[2019-03-29] MEDS: SOTALOL HCL 80 MG TAB PO SCH ×2 (05:10→17:31)
[2019-03-29] MEDS: LEVOTHYROXINE SOD 0.075 MG TAB PO SCH (05:10)
[2019-03-29 06:31] LABS: Magnesium 1.7 mg/dL (1.8-2.4); Potassium 3.9 mmol/L (3.5-5.1)
[2019-03-29] MEDS: INSULIN -REGULAR HUMAN 50 UNIT/0.5 ML ML SQ SCH ×3 (07:30→16:30)
[2019-03-29] MEDS ORDERED: POTASSIUM CL SA 10 MEQ TAB PO ONE (09:00)
[2019-03-29] MEDS ORDERED: MAGNESIUM SULFATE 1 gm IVPB 1 GM/100 ML BAG IV ONE (09:00)
[2019-03-29] MEDS: MEMANTINE HCL 10 MG TABLET PO SCH (09:53)
[2019-03-29] MEDS: HYDRALAZINE HCL 25 MG TABLET PO SCH (09:53)
[2019-03-29] MEDS: ASPIRIN EC 81 MG TAB PO SCH (09:53)
[2019-03-29] MEDS: CEFTRIAXONE/SWI 1gm 1 GM/10 ML SYR IV SCH (09:53)
[2019-03-29] MEDS: FUROSEMIDE 40 MG TABLET PO SCH (09:53)
[2019-03-29] MEDS: AZITHROMYCIN IV 500 MG in NA CHLORIDE 0.9% 250 ML IVPB SCH (09:54)
[2019-03-29] MEDS: AMLODIPINE 10 MG TAB PO SCH (09:54)
[2019-03-29 10:29] VITALS: O2SAT 97
[2019-03-29] MEDS ORDERED: PNEUMOCOCCAL VACCINE 0.5 ML IMVAC ONE (11:00)
[2019-03-29 15:30] VITALS: BP 133/61; TEMP 97.8
[2019-03-29] MEDS: RIVAROXABAN 10 MG TABLET PO SCH (17:31)
--- NOTE | 2019-03-29 17:36 | P.DS ---
Admission Date: 03/28/19 Discharge Date: 03/29/19 Primary Care Provider: Dr. Shanks (Hospitalist covering while he is on Vacation) ; Card-Dr. Sauceda Disposition: ROUTINE DISCHARGE Discharge Condition: GOOD Reason for Admission: Palpitations, shortness of breath Consultations: Cardiology Brief History of Present Illness: 78-year-old female presented to the emergency room with palpitations and shortness of breath. Patient with history of chronic atrial fibrillation on chronic anti coagulation therapy, hypertension, diabetes mellitus type 2 insulin dependent, dementia, hypothyroidism. Patient presented to the emergency room with palpitations and shortness of breath. The patient was at [facility] when she became very weak. She was brought in by EMS. Patient denied any fever, chills. Daughter had noted that she had been feeling weak over the past week. In the ER patient found to have atrial fibrillation with a rate in the 180s. Patient was given calcium channel isaiah IV. Rate improved. On lab white count 11.2, hemoglobin 13. Sodium 137, potassium 3.7. BUN of 13 creatinine 0.84 with a GFR 65. Glucose 267. Magnesium 1.1. This was replaced in the emergency room. Troponin unremarkable. Chest x-rayed showed emphysematous changes with possible right lower lobe pneumonia. Patient admitted for further evaluation and treatment. When I saw the patient the ER, she appeared stable. Rate improved to the 120s. Family at bedside. Daughter reports blood pressures have remained elevated. Patient recently seen by PCP this past week. Hospital Course: Patient was admitted for symptomatic atrial fibrillation with RVR on chronic anticoagulation therapy. Cardiology was consulted. Her sotalol was increased to 120 mg b.i.d. and she was continued on his Xarelto. Echocardiogram was ordered, which was unremarkable. Patient was scheduled for a cardioversion, patient and family refused. She did convert to normal sinus rhythm on sotalol 120 mg twice a day. She was then cleared for discharge by cardiology. Her initial x-ray showed possible pneumonia and repeat chest x-ray was done, which showed continued to have area of changes that may be infiltrate versus chronic scarring. She was continued on IV antibiotics and transitioned to oral azithromycin on discharge. Her diagnosis and treatment plan was explained to her and her family. All questions were answered and they verbalized understanding. She was then discharged home in a safe and stable manner. Follow up with cardiology in 1 week. She was discharged on sotalol 120 mg b.i.d. along with oral to 20 mg daily. Vital Signs/Physical Exam: Temp Pulse Resp BP Pulse Ox 97.8 F 67 16 133/61 95 03/29/19 12:00 03/29/19 12:00 03/29/19 12:00 03/29/19 12:00 03/29/19 12:00 General: Alert, In no apparent distress, Oriented x3 HEENT: Atraumatic, PERRLA, EOMI Neck: Supple, JVD not distended Respiratory: Clear to auscultation bilaterally, Normal air movement Cardiovascular: Regular rate/rhythm, Normal S1 S2 Gastrointestinal: Normal bowel sounds, No tenderness Musculoskeletal: No tenderness Integumentary: No rashes Neurological: Normal speech, Normal tone, Normal affect Lymphatics: No axilla or inguinal lymphadenopathy Laboratory Data at Discharge: WBC 8.4 K/uL (4.3-10.9) D 03/28/19 05:13 Hgb 12.2 g/dL (12.0-15.0) 03/28/19 05:13 Hct 35.4 % (36.0-45.0) L 03/28/19 05:13 Plt Count 179 K/uL (152-406) 03/28/19 05:13 PT 15.3 SECONDS (9.5-12.5) H 03/27/19 18:25 INR 1.31 03/27/19 18:25 Sodium 141 mmol/L (136-145) 03/29/19 05:13 Potassium 3.9 mmol/L (3.5-5.1) 03/29/19 05:13 BUN 11 mg/dL (7-18) 03/29/19 05:13 Creatinine 0.65 mg/dL (0.55-1.3) 03/29/19 05:13 Glucose 108 mg/dL (74-106) H 03/29/19 05:13 Magnesium 1.7 mg/dL (1.8-2.4) L 03/29/19 05:13 Total Bilirubin 0.7 mg/dL (0.2-1.0) 03/27/19 18:25 AST 16 U/L (15-37) 03/27/19 18:25 ALT 15 U/L (12-78) 03/27/19 18:25 Alkaline Phosphatase 92 U/L (45-117) 03/27/19 18:25 Troponin I < 0.02 ng/mL (0.0-0.045) 03/28/19 13:07 Triglycerides 118 mg/dL (<150) 03/28/19 05:13 Cholesterol 142 mg/dL (<200) 03/28/19 05:13 HDL Cholesterol 39 mg/dL (40-60) L 03/28/19 05:13 Cholesterol/HDL Ratio 3.64 03/28/19 05:13 Home Medications: Amlodipine [Norvasc*] 10 mg PO DAILY 10/19/12 Furosemide [Lasix*] 40 mg PO SEECOM 10/19/12 Hydralazine [Apresoline*] 50 mg PO BID 10/19/12 Metformin ER [Glucophage ER*] 1,000 mg PO BID 10/19/12 Potassium Chloride [K-Dur] 10 meq PO DAILY 10/19/12 Rivaroxaban [Xarelto] 20 mg PO DAILY #30 tablet 07/29/15 Memantine HCl 10 mg PO BID 03/28/19 Azithromycin [Zithromax] 250 mg PO DAILY #3 tablet 03/29/19 Sotalol HCl [Sotalol] 120 mg PO BID #60 tablet 03/29/19 New Medications: Azithromycin [Zithromax] 250 mg PO DAILY #3 tablet Sotalol HCl [Sotalol] 120 mg PO BID #60 tablet Patient Discharge Instructions: Please follow up with your primary care physician in 2-3 days. Please follow up with cardiology in 2 weeks. Return to the ER for worsening symptoms. Diet: AHA Activity: Ad sandie Followup: Barron Sauceda MD [ACTIVE - CAN ADMIT] - Time spent managing pt's care (in minutes): 55
--- NOTE | 2019-03-29 19:05 | PN ---
Ms. Coreas has decided against doing any cardioversion. Her heart rate is controlled. She feels well . She is on anticoagulation, so I believe she could be discharged home. If she feels worse, being i n AFib and wants to change her mind, she could be admitted for an outpatient cardioversion electively . I would recommend we continue Betapace 120 b.i.d. BOLA/HITESH Voice ID: [id number] Report ID: [id number]
== END 2019-03-29 17:39 | disposition home or self-care (01) | DRG 308 ==
LOC: ER 17:52 → ERHOLD 22:10 → 2ND 22:44 → OBSVTOIN 03-28 11:36
PROVIDERS: ADMIT Family Medicine; ATTEND Family Medicine
DX: I48.20 Chronic atrial fibrillation, unspecified (principal); J18.9 Pneumonia, unspecified organism; I10 Essential (primary) hypertension; E11.9 Type 2 diabetes mellitus without complications; F03.90 Unspecified dementia, unspecified severity, without behavioral disturbance, psychotic disturbance, mood disturbance, and anxiety; E03.9 Hypothyroidism, unspecified; E83.42 Hypomagnesemia; E78.5 Hyperlipidemia, unspecified; Z79.01 Long term (current) use of anticoagulants; Z85.038 Personal history of other malignant neoplasm of large intestine; Z23 Encounter for immunization
CPT/HCPCS: 36415; 71045; 71046; 80048; 80061; 80076; 81003; 81015; 82550; 82553; 82962; 83735; 83880; 84145; 84439; 84443; 84484; 85025; 85610; 87040; 87077; 87086; 87088; 87186; 90471; 90670; 93005; 93306; 96365; 96366; 96375; 99285; G0378; J0456; J0696; J1815; J3475; J7030

== ENCOUNTER 2019-04-07 17:48 | Emergency (ER) | payer OTHER ==
--- NOTE | 2019-04-07 18:48 | RAD REPORT ---
EXAM DESCRIPTION: RAD - Chest Single View - 04/07/2019 6:28 pm CLINICAL HISTORY: Palpitations, arrhythmia COMPARISON: March 28 TECHNIQUE: AP portable chest image was obtained 1810 hours . FINDINGS: Lung volumes are low. Baseline interstitial pattern is not substantially different. Focal scarring in the left midlung field has not change from prior imaging. Heart and vasculature are jb l. No measurable pleural effusion and no pneumothorax. No acute bony abnormality seen. No acute aorti c findings suspected. IMPRESSION: Chronic interstitial lung disease. No acute findings seen. Chest findings are not substantially different from comparison.
[2019-04-07 18:51] LABS: Absolute Lymphocytes (CBC) 1.7 K/uL (0.7-4.9); Basophils % 1.3 % (0-1.3); Hematocrit 42.1 % (36.0-45.0); Lymphocytes % 15.7 % (15.3-44.8); MPV 9.8 fL (7.6-11.3); RBC Red Blood Cell Count 4.51 M/uL (3.86-4.86)
[2019-04-07 18:53] LABS: Protime INR 1.33
[2019-04-07 19:15] LABS: ALT/SGPT 14 U/L (12-78); AST/SGOT 13 U/L (15-37); Albumin 3.3 g/dL (3.4-5.0); Alkaline Phosphatase 128 U/L (45-117); BUN Blood Urea Nitrogen 17 mg/dL (7-18); Bicarbonate 24 mmol/L (21-32); Bilirubin Direct 0.2 mg/dL (0-0.2); Bilirubin Total 0.5 mg/dL (0.2-1.0); Glucose Level 186 mg/dL (74-106); Protein, Total 7.6 g/dL (6.4-8.2); Sodium Level 138 mmol/L (136-145)
[2019-04-07 19:16] LABS: NT PRO-BNP 1543 pg/mL (<450); Troponin (Emerg Dept Use Only) < 0.02 ng/mL (0.0-0.045)
[2019-04-07 19:17] LABS: Magnesium 1.4 mg/dL (1.8-2.4)
[2019-04-07] MEDS ORDERED: NA CHLORIDE 0.9% 1,000 ML ONE (19:34)
[2019-04-07] MEDS ORDERED: MAGNESIUM SULFATE 1 gm IVPB 1 GM/100 ML BAG IV ONE (19:34)
--- NOTE | 2019-04-07 20:52 | ER ---
Nurse's Notes [facility] Name: Hannah Coreas Age: 79 yrs Sex: Female : 1940 Arrival Date: 04/07/2019 Time: 17:54 Bed 3 Private MD: Diagnosis: Atrial fibrillation and flutter;Palpitations;Hypomagnesemia Presentation: 04/07 17:55 Presenting complaint: EMS states: Pt recently admitted and dx w/ A-fib, today reports ph "not feeling right" HR 100-150, other VSS, denies chest pain or SOB. Transition of care: patient was not received from another setting of care. Onset of symptoms was April 07, 2019. Risk Assessment: Do you want to hurt yourself or someone else? Patient reports no desire to harm self or others. Initial Sepsis Screen: Does the patient meet any 2 criteria? No. Patient's initial sepsis screen is negative. Does the patient have a suspected source of infection? No. Patient's initial sepsis screen is negative. Care prior to arrival: None. 17:55 Method Of Arrival: EMS: [facility] ph 17:55 Acuity: FABIANA 2 ph 18:02 Acuity: FABIANA 2 ph 18:04 Acuity: FABIANA 1 ph Historical: - Allergies: 18:03 Codeine; ph - Home Meds: 20:18 Azithromycin Oral [Active]; sotalol 120 mg Oral tab 1 tab 2 times per day [Active]; rr5 amlodipine 10 mg tab 1 tab once daily [Active]; Lasix Oral [Active]; hydralazine 50 mg Oral tab 1 tab 2 times per day [Active]; memantine oral oral [Active]; metformin 1,000 mg Oral tab 1 tab 2 times per day [Active]; Namenda 10 mg Oral tab 1 tab 2 times per day [Active]; potassium chloride 10 mEq Oral TbTQ 1 tab once daily [Active]; Xarelto 20 mg Oral tab 1 tab once daily [Active]; - PMHx: 18:03 Atrial Fib; COLON CA; Diabetes - IDDM; Hypertension; ph - PSHx: 18:03 ; ph - Immunization history:: Adult Immunizations unknown. - Social history:: Smoking status: Patient/guardian denies using tobacco. - Ebola Screening: : No symptoms or risks identified at this time. Screenin:47 Abuse screen: Denies threats or abuse. Denies injuries from another. Nutritional ph screening: No deficits noted. Tuberculosis screening: No symptoms or risk factors identified. Fall Risk None identified. Assessment: 18:05 Reassessment: Pt states that she did not take evening dose of sotalol, taking now, ph family at bedside. 18:10 General: Appears in no apparent distress. comfortable, slender, well groomed, Behavior ph is calm, cooperative, appropriate for age. Pain: Denies pain. Neuro: Level of Consciousness is awake, alert, obeys commands, Oriented to person, place, time, situation. Cardiovascular: Reports fatigue, palpitations, Denies chest pain, nausea, shortness of breath. Respiratory: Airway is patent Respiratory effort is even, unlabored, Respiratory pattern is regular, symmetrical. GI: No signs and/or symptoms were reported involving the gastrointestinal system. Derm: Skin is intact, is fragile, is thin, Skin is pink, warm \\T\\ dry. Musculoskeletal: Circulation, motion, and sensation intact. Range of motion: intact in all extremities. 18:49 Reassessment: Patient appears in no apparent distress at this time. Patient and/or ph family updated on plan of care and expected duration. Pain level reassessed. Patient is alert, oriented x 3, equal unlabored respirations, skin warm/dry/pink. 19:19 Reassessment: Patient appears in no apparent distress at this time. Patient and/or jb4 family updated on plan of care and expected duration. Pain level reassessed. Patient is alert, oriented x 3, equal unlabored respirations, skin warm/dry/pink. Family is at the pt's bedside. Pt denies difficulty breathing, dizziness or otherwise feeling worse. Pt reports feeling better except for feeling like she has a racing heart rate. Patient denies pain at this time. Patient states feeling better. 19:32 Reassessment: magnesium 1.4 called by laboratory staff caroline. ED provider aware with rr5 order made and carried out. 20:42 Reassessment: Patient appears in no apparent distress at this time. Patient and/or jb4 family updated on plan of care and expected duration. Pain level reassessed. Patient is alert, oriented x 3, equal unlabored respirations, skin warm/dry/pink. PT denies the sensation of having a racing heart rate. Patient denies pain at this time. Patient states symptoms have improved. 21:12 Reassessment: Patient appears in no apparent distress at this time. Patient and/or jb4 family updated on plan of care and expected duration. Pain level reassessed. Patient is alert, oriented x 3, equal unlabored respirations, skin warm/dry/pink. PT and pt's family verbalized understanding of d/c and follow up instructions. Vital Signs: 18:00 BP 110 / 95; Pulse 155; Resp 28; Pulse Ox 99% on R/A; ph 18:44 BP 121 / 93; Pulse 135; Resp 18; Temp 98.0; Pulse Ox 99% on R/A; Pain 0/10; ph 19:31 BP 136 / 65; Pulse 94; Resp 18; Pulse Ox 97% on R/A; jb4 20:00 BP 136 / 65; Pulse 90; Resp 22; Pulse Ox 95% on R/A; jb4 20:30 BP 139 / 66; Pulse 85; Resp 24; Pulse Ox 95% on R/A; jb4 21:00 BP 168 / 74; Pulse 79; Resp 20; Pulse Ox 97% on R/A; jb4 ED Course: 17:54 Patient arrived in ED. ph 17:55 [facility]C [facility] snw 17:55 Gutierrez Patel MD is Attending Physician. snw 17:59 Triage completed. ph 18:03 Arm band placed on Patient placed in an exam room, on laboratory monitor, on pulse ph oximetry. 18:04 Nella Timmons, ERMIAS is Primary Nurse. ph 18:28 XRAY Chest (1 view) In Process Unspecified. EDMS 18:47 Patient has correct armband on for positive identification. Placed in gown. Bed in low ph position. Call light in reach. cardiac monitor technician on. Pulse ox on. NIBP on. Door closed. Noise minimized. Warm blanket given. Pillow given. Head of bed elevated. 18:48 Maintain EMS IV. Dressing intact. Good blood return noted. Site clean \\T\\ dry. Gauge \\T\\ ph site: 20 LAC. Patient maintains SpO2 saturation greater than 95% on room air. 21:13 No provider procedures requiring assistance completed. IV discontinued, intact, jb4 bleeding controlled, No redness/swelling at site. Pressure dressing applied. Administered Medications: 19:40 Drug: NS 0.9% 1000 ml Route: IV; Rate: 75 ml/hr; Site: left antecubital; jb4 21:05 Follow up: Response: No adverse reaction; IV Status: Order to discontinue infusion; IV jb4 Intake: 104ml 19:40 Drug: Magnesium Sulfate 1 grams Route: IVPB; Infused Over: 1 hrs; Site: left jb4 antecubital; 20:40 Follow up: Response: No adverse reaction; IV Status: Completed infusion; IV Intake: jb4 100ml Intake: 20:40 IV: 100ml; Total: 100ml. jb4 21:05 IV: 104ml; Total: 204ml. jb4 Outcome: 20:51 Discharge ordered by . nasreen 21:13 Discharged to home via wheelchair, with family. jb4 21:13 Condition: stable 21:13 Discharge instructions given to patient, family, Instructed on discharge instructions, follow up and referral plans. Demonstrated understanding of instructions, follow-up care. 21:15 Patient left the ED. jb4 Signatures: Dispatcher [employer] EDMS Grace Lewis, GEOPHYSICAL OPERATOR-C GEOPHYSICAL OPERATOR-Csnw Nella Timmons RN RN ph Wilbert Mcneal, RN RN jb4 Luan Dash, RN RN rr5 Corrections: (The following items were deleted from the chart) 18:47 18:44 BP 121 / 93; Pulse 140bpm; Resp 18bpm; Pulse Ox 99% RA; Temp 98.0F; Pain 0/10; ph ph
--- NOTE | 2019-04-07 20:53 | EDPHYS ---
Physician Documentation [facility] Name: Hannah Coreas Age: 79 yrs Sex: Female : 1940 Arrival Date: 04/07/2019 Time: 17:54 Bed 3 Private MD: ED Physician Gutierrez Patel HPI: 04/07 18:07 This 79 yrs old Female presents to ER via EMS with complaints of Irregular snw Pulse. 18:07 Onset: The symptoms/episode began/occurred suddenly, just prior to arrival. Associated snw signs and symptoms: The patient has no apparent associated signs or symptoms. Modifying factors: The patient symptoms are alleviated by nothing. pt with hx of a. fib, takes Sotalol 120mg BID, has not taken evening dose. Given po in ED. Historical: - Allergies: 18:03 Codeine; ph - Home Meds: 20:18 Azithromycin Oral [Active]; sotalol 120 mg Oral tab 1 tab 2 times per day [Active]; rr5 amlodipine 10 mg tab 1 tab once daily [Active]; Lasix Oral [Active]; hydralazine 50 mg Oral tab 1 tab 2 times per day [Active]; memantine oral oral [Active]; metformin 1,000 mg Oral tab 1 tab 2 times per day [Active]; Namenda 10 mg Oral tab 1 tab 2 times per day [Active]; potassium chloride 10 mEq Oral TbTQ 1 tab once daily [Active]; Xarelto 20 mg Oral tab 1 tab once daily [Active]; - PMHx: 18:03 Atrial Fib; COLON CA; Diabetes - IDDM; Hypertension; ph - PSHx: 18:03 ; ph - Immunization history:: Adult Immunizations unknown. - Social history:: Smoking status: Patient/guardian denies using tobacco. - Ebola Screening: : No symptoms or risks identified at this time. ROS: 18:07 Constitutional: Negative for fever, chills, and weight loss, Eyes: Negative for injury, snw pain, redness, and discharge, ENT: Negative for injury, pain, and discharge, Neck: Negative for injury, pain, and swelling, Respiratory: Negative for shortness of breath, cough, wheezing, and pleuritic chest pain, Abdomen/GI: Negative for abdominal pain, nausea, vomiting, diarrhea, and constipation, Back: Negative for injury and pain, : Negative for injury, bleeding, discharge, and swelling, MS/Extremity: Negative for injury and deformity, Skin: Negative for injury, rash, and discoloration, Neuro: Negative for headache, weakness, numbness, tingling, and seizure. 18:07 Cardiovascular: Positive for palpitations. Exam: 18:06 Constitutional: This is a well developed, well nourished patient who is awake, alert, snw and in no acute distress. Head/Face: Normocephalic, atraumatic. Eyes: Pupils equal round and reactive to light, extra-ocular motions intact. Lids and lashes normal. Conjunctiva and sclera are non-icteric and not injected. Cornea within normal limits. Periorbital areas with no swelling, redness, or edema. ENT: Nares patent. No nasal discharge, no septal abnormalities noted. Tympanic membranes are normal and external auditory canals are clear. Oropharynx with no redness, swelling, or masses, exudates, or evidence of obstruction, uvula midline. Mucous membranes moist. Neck: Trachea midline, no thyromegaly or masses palpated, and no cervical lymphadenopathy. Supple, full range of motion without nuchal rigidity, or vertebral point tenderness. No Meningismus. Chest/axilla: Normal chest wall appearance and motion. Nontender with no deformity. No lesions are appreciated. Respiratory: Lungs have equal breath sounds bilaterally, clear to auscultation and percussion. No rales, rhonchi or wheezes noted. No increased work of breathing, no retractions or nasal flaring. Abdomen/GI: Soft, non-tender, with normal bowel sounds. No distension or tympany. No guarding or rebound. No evidence of tenderness throughout. Back: No spinal tenderness. No costovertebral tenderness. Full range of motion. Skin: Warm, dry with normal turgor. Normal color with no rashes, no lesions, and no evidence of cellulitis. MS/ Extremity: Pulses equal, no cyanosis. Neurovascular intact. Full, normal range of motion. Neuro: Awake and alert, GCS 15, oriented to person, place, time, and situation. Cranial nerves II-XII grossly intact. Motor strength 5/5 in all extremities. Sensory grossly intact. Cerebellar exam normal. Normal gait. Psych: Awake, alert, with orientation to person, place and time. Behavior, mood, and affect are within normal limits. 18:06 Cardiovascular: Rate: tachycardic, Rhythm: irregularly irregular, Pulses: no pulse deficits are appreciated, Heart sounds: normal, Edema: is not appreciated, JVD: is not appreciated. Vital Signs: 18:00 BP 110 / 95; Pulse 155; Resp 28; Pulse Ox 99% on R/A; ph 18:44 BP 121 / 93; Pulse 135; Resp 18; Temp 98.0; Pulse Ox 99% on R/A; Pain 0/10; ph 19:31 BP 136 / 65; Pulse 94; Resp 18; Pulse Ox 97% on R/A; jb4 20:00 BP 136 / 65; Pulse 90; Resp 22; Pulse Ox 95% on R/A; jb4 20:30 BP 139 / 66; Pulse 85; Resp 24; Pulse Ox 95% on R/A; jb4 21:00 BP 168 / 74; Pulse 79; Resp 20; Pulse Ox 97% on R/A; jb4 MDM: 17:55 Patient medically screened. snw 18:05 Data reviewed: vital signs, nurses notes. Data interpreted: Pulse oximetry: on room air snw is 99 %. Interpretation: normal. Counseling: I had a detailed discussion with the patient and/or guardian regarding: the historical points, exam findings, and any diagnostic results supporting the discharge/admit diagnosis, lab results, radiology results. ED course: pt took her own Sotalol 120mg po in ED at 1800. 20:04 Response to treatment: the patient's symptoms have markedly improved after treatment. snw Awaiting: Magnesium infusion. 04/07 18:04 Order name: Basic Metabolic Panel snw 04/07 18:04 Order name: CBC with Diff; Complete Time: 19:02 snw 04/07 18:04 Order name: LFT's; Complete Time: 19:32 snw 04/07 18:04 Order name: Magnesium; Complete Time: 19:32 snw 04/07 18:04 Order name: NT PRO-BNP; Complete Time: 19:32 snw 04/07 18:04 Order name: PT-INR; Complete Time: 19:02 snw 04/07 18:04 Order name: Troponin (emerg Dept Use Only); Complete Time: 19:32 snw 04/07 18:04 Order name: XRAY Chest (1 view); Complete Time: 19:02 snw 04/07 18:04 Order name: EKG; Complete Time: 18:05 snw 04/07 18:04 Order name: Cardiac monitoring; Complete Time: 18:44 snw 04/07 18:04 Order name: EKG - Nurse/Tech; Complete Time: 18:44 snw 04/07 18:05 Order name: Basic Metabolic Panel; Complete Time: 19:32 EDMS 04/07 18:04 Order name: IV Saline Lock; Complete Time: 18:44 snw 04/07 18:04 Order name: Labs collected and sent; Complete Time: 18:44 snw 04/07 18:04 Order name: O2 Per Protocol; Complete Time: 18:44 snw 04/07 18:04 Order name: O2 Sat Monitoring; Complete Time: 18:44 snw Administered Medications: 19:40 Drug: NS 0.9% 1000 ml Route: IV; Rate: 75 ml/hr; Site: left antecubital; jb4 21:05 Follow up: Response: No adverse reaction; IV Status: Order to discontinue infusion; IV jb4 Intake: 104ml 19:40 Drug: Magnesium Sulfate 1 grams Route: IVPB; Infused Over: 1 hrs; Site: left jb4 antecubital; 20:40 Follow up: Response: No adverse reaction; IV Status: Completed infusion; IV Intake: jb4 100ml Disposition: 04/08 13:01 Co-signature as Attending Physician, Gutierrez Patel MD I agree with the assessment and kdr plan of care. Disposition: 04/07/19 20:51 Discharged to Home. Impression: Atrial fibrillation and flutter, Palpitations, Hypomagnesemia. - Condition is Stable. - Discharge Instructions: Atrial Fibrillation, Hypomagnesemia, Palpitations. - Medication Reconciliation Form, Thank You Letter, Antibiotic Education, Prescription Opioid Use form. - Follow up: Emergency Department; When: As needed; Reason: Worsening of condition. Follow up: Private Physician; When: 1 - 2 days; Reason: Recheck today's complaints, Continuance of care, Re-evaluation by your physician. Signatures: Dispatcher [employer] Gutierrez Collins MD MD kdr Therrien, Shelly, FIELD RESEARCH ASSISTANT-C FIELD RESEARCH ASSISTANT-Csnw Nella Timmons RN RN Wilbert Mcneal, RN RN jb4 Luan Dash RN RN rr5 Corrections: (The following items were deleted from the chart) 04/07 21:15 20:51 04/07/2019 20:51 Discharged to Home. Impression: Atrial fibrillation and flutter; jb4 Palpitations; Hypomagnesemia. Condition is Stable. Discharge Instructions: Atrial Fibrillation, Hypomagnesemia, Palpitations. Forms are Medication Reconciliation Form, Thank You Letter, Antibiotic Education, Prescription Opioid Use. Follow up: Emergency Department; When: As needed; Reason: Worsening of condition. Follow up: Private Physician; When: 1 - 2 days; Reason: Recheck today's complaints, Continuance of care, Re-evaluation by your physician. snw
[2019-04-07 21:21] VITALS: TEMP 98
[2019-04-07 21:26] VITALS: BP 168/74; O2SAT 97
--- NOTE | 2019-04-08 10:02 | EKG ---
Test Date: 2019-04-07 Test Time: 17:55:24 Reservoir Engineer: LUZ MEASUREMENT RESULTS: Intervals: Rate: 160 NV: QRSD: 124 QT: 362 QTc: 590 [place]: P: NV: QRS: -73 T: 28 INTERPRETIVE STATEMENTS: Atrial fibrillation with rapid ventricular response Right bundle branch block Left anterior fascicular block Bifascicular block Septal infarct, age undetermined Abnormal ECG Compared to ECG 03/27/2019 17:57:03 Left anterior fascicular block now present Bifascicular block now present Myocardial infarct finding now present Ventricular premature complex(es) no longer present Electronically Signed On 04-08-19 10:02:15 CDT by Barron Sauceda
== END 2019-04-07 21:15 | disposition home or self-care (01) ==
LOC: ER 17:48
DX: I48.91 Unspecified atrial fibrillation (principal); I48.92 Unspecified atrial flutter; E83.42 Hypomagnesemia; Z88.6 Allergy status to analgesic agent; E11.9 Type 2 diabetes mellitus without complications; I10 Essential (primary) hypertension; Z85.038 Personal history of other malignant neoplasm of large intestine
CPT/HCPCS: 93005; 85025; 80048; 36415; 83735; 85610; 80076; 84484; 83880; 71045; J3475; J7030; 96365; 99291; 99292

== ENCOUNTER 2019-06-09 14:13 | Inpatient (IN) | payer OTHER ==
[~2019-06-09 14:13] MED LIST: EPINEPHrine 1 MG/10 ML SYR ONE
[2019-06-09] MEDS ORDERED: NA CHLORIDE 0.9% 1,000 ML ONE (14:42)
[2019-06-09 14:52] LABS: Basophils % 0.7 % (0-1.3); Hematocrit 36.6 % (36.0-45.0); Lymphocytes % 8.9 % (15.3-44.8); MPV 10.1 fL (7.6-11.3); RBC Red Blood Cell Count 3.95 M/uL (3.86-4.86)
--- NOTE | 2019-06-09 15:22 | ER ---
Nurse's Notes [facility] Name: Hannah Coreas Age: 79 yrs Sex: Female : 1940 Arrival Date: 06/09/2019 Time: 14:17 Bed 2 Private MD: Diagnosis: Weakness;Palpitations;Atrial fibrillation and flutter;Type 1 diabetes mellitus;Hypomagnesemia;Unspecified kidney failure Presentation: 06/09 14:10 Presenting complaint: EMS states: Pt. is 79 yr. old, c/o of general weakness, denies rb1 fever and pain. HR was initially 154 but when the pt. stood to get on the stretcher HR was 94. History of A-fib, CHF, HTN, Diabetes Type II, high cholesterol. BS 110, vital signs were stable and she is afebrile. Transition of care: patient was not received from another setting of care. Onset of symptoms was June 06, 2019. Risk Assessment: Do you want to hurt yourself or someone else? Patient reports no desire to harm self or others. Initial Sepsis Screen: Does the patient meet any 2 criteria? No. Patient's initial sepsis screen is negative. Does the patient have a suspected source of infection? No. Patient's initial sepsis screen is negative. Care prior to arrival: None. 14:10 Acuity: FABIANA 3 rb1 14:10 Method Of Arrival: EMS: [facility] rb1 Triage Assessment: 14:10 General: Appears in no apparent distress. comfortable, Behavior is calm, cooperative, rb1 Denies fever. Pain: Denies pain. Neuro: Level of Consciousness is awake, alert, obeys commands, Oriented to person, place, situation. Cardiovascular: Capillary refill < 3 seconds is brisk in bilateral fingers. Respiratory: Airway is patent Respiratory effort is even, unlabored, Respiratory pattern is regular, symmetrical. GI: No signs and/or symptoms were reported involving the gastrointestinal system. : No signs and/or symptoms were reported regarding the genitourinary system. Derm: Skin is pink, warm \T\ dry. Musculoskeletal: Range of motion: intact in all extremities. Historical: - Allergies: 14:10 Codeine; aa5 - Home Meds: 14:10 amlodipine 10 mg tab 1 tab once daily [Active]; Azithromycin Oral [Active]; memantine aa5 Oral [Active]; metformin 1,000 mg Oral tab 1 tab 2 times per day [Active]; Xarelto 20 mg Oral tab 1 tab once daily [Active]; hydralazine 50 mg Oral tab 1 tab 2 times per day [Active]; Lasix Oral [Active]; sotalol 120 mg Oral tab 1 tab 2 times per day [Active]; levothyroxine oral [Active]; potassium chloride 10 mEq Oral TbTQ 1 tab once daily [Active]; Trulicity subcutaneous subcutaneous [Active]; - PMHx: 14:10 Atrial Fib; COLON CA; Diabetes - IDDM; Hypertension; aa5 - PSHx: 14:10 ; aa5 - Immunization history:: Adult Immunizations up to date. - Social history:: Smoking status: Patient/guardian denies using tobacco. - Ebola Screening: : Patient negative for fever greater than or equal to 101.5 degrees Fahrenheit, and additional compatible Ebola Virus Disease symptoms. - Family history:: not pertinent. Screenin:10 Abuse screen: Denies threats or abuse. Nutritional screening: No deficits noted. rb1 Tuberculosis screening: No symptoms or risk factors identified. Fall Risk No fall in past 12 months (0 pts). Secondary diagnosis (15 points) impaired mobility, IV access (20 points). Ambulatory Aid- Crutches/Cane/Walker (15 pts). Gait- Impaired (20 pts.). Mental Status- Oriented to own ability (0 pts). Total Ren[place] Fall Scale indicates High Risk Score (45 or more points). Fall prevention measures have been instituted. Side Rails Up X 2 Placed Close to Nursing Station 1:1 Attendant Assigned Frequent Obs/Assessments Occuring Family Present and informed to notify staff if the need to leave the bedside As available patient and family educated on Fall Prevention Program and Strategies. Assessment: 14:10 General: See triage assessment. rb1 16:00 Reassessment: Patient is alert, oriented x 3, equal unlabored respirations, skin aa5 warm/dry/pink. Denies any complaints at this time. Pt's family at bedside. . 17:00 Reassessment: Patient appears in no apparent distress at this time. No changes from rb1 previously documented assessment. Family at the bedside. 17:58 Reassessment: Patient appears in no apparent distress at this time. Patient and/or rb1 family updated on plan of care and expected duration. Pain level reassessed. Patient is alert, oriented x 3, equal unlabored respirations, skin warm/dry/pink. Patient denies pain at this time. 17:59 Reassessment: Pt. went to CT. rb1 18:20 Reassessment: Gave report to ERMIAS Hwang. Information from the SBAR was given. All rb1 questions asked and answered. 18:26 Reassessment: Patient appears in no apparent distress at this time. Patient and/or rb1 family updated on plan of care and expected duration. Pain level reassessed. Patient is alert, oriented x 3, equal unlabored respirations, skin warm/dry/pink. Patient denies pain at this time. 19:42 General: Appears in no apparent distress. comfortable, Behavior is calm, cooperative, jd3 appropriate for age, Reports fatigue for 12-24 hours. Pain: Denies pain. Neuro: Level of Consciousness is awake, alert, obeys commands, Oriented to person, place, time, situation. Cardiovascular: Capillary refill < 3 seconds Patient's skin is warm and dry. Rhythm is regular. Respiratory: Airway is patent Respiratory effort is even, unlabored, Respiratory pattern is regular, symmetrical. GI: No signs and/or symptoms were reported involving the gastrointestinal system. : No signs and/or symptoms were reported regarding the genitourinary system. EENT: No signs and/or symptoms were reported regarding the EENT system. Derm: Skin is intact, Skin is dry, Skin is normal, Skin temperature is warm. Musculoskeletal: Circulation, motion, and sensation intact. Range of motion: intact in all extremities. Vital Signs: 14:10 BP 136 / 83; Pulse 82; Resp 17; Temp 97.2(TE); Pulse Ox 100% on R/A; Weight 68.04 kg rb1 (R); Height 5 ft. 4 in. (162.56 cm) (R); Pain 0/10; 15:55 BP 136 / 90; Pulse 63; Resp 16 S; Pulse Ox 97% on R/A; aa5 16:55 BP 132 / 87; Pulse 83; Resp 18; Pulse Ox 97% on R/A; Pain 0/10; rb1 17:55 BP 132 / 74; Pulse 83; Resp 25; Pulse Ox 100% ; Pain 0/10; rb1 18:26 BP 120 / 86; Pulse 86; Resp 19; Pulse Ox 99% on R/A; Pain 0/10; rb1 14:10 Body Mass Index 25.75 (68.04 kg, 162.56 cm) rb1 15:55 NSR on monitor. MD notified of decreased HR and lopressor was cancelled. aa5 ED Course: 14:10 Arm band placed on right wrist. Patient has correct armband on for positive rb1 identification. Bed in low position. Call light in reach. Side rails up X 1. Pulse ox on. NIBP on. Warm blanket given. 14:10 Maintain EMS IV. Dressing intact. Good blood return noted. Site clean \T\ dry. Gauge \T\ rb 1 site: 20 G L AC. 14:17 Patient arrived in ED. em1 14:22 Giselle Barrera RN is Primary Nurse. aa5 14:22 Hoang Brown MD is Attending Physician. kathleen 14:26 Triage completed. aa5 14:45 EKG done, by ED staff, reviewed by Hoang Brown MD X-ray(s) taken. Maintain EMS IV. jp3 Dressing intact. Good blood return noted. Site clean \T\ dry. Gauge \T\ site: 20gauge in Right AC. Patient maintains SpO2 saturation greater than 95% on room air. 14:47 XRAY Chest (1 view) In Process Unspecified. EDMS 15:00 Primary Nurse role handed off by Giselle Barrera RN rb1 15:00 Carolina Le, ERMIAS is Primary Nurse. rb1 15:04 Carolina Le, RN is Primary Nurse. rb1 15:16 Brett Kessler MD is Hospitalizing Provider. [facility] 15:58 Lab(s) recollected, by me, sent to lab. aa5 18:59 Report given to ERMIAS Barth. rb1 19:41 No provider procedures requiring assistance completed. Patient admitted, IV remains in jd3 place. Administered Medications: 05:53 Drug: Rocephin 1 grams Route: IV; Rate: per protocol; Site: left antecubital; rb1 18:25 Follow up: Response: No adverse reaction; IV Status: Completed infusion; Medication was rb1 administered at 1753, not 0553 14:53 Drug: NS 0.9% 1000 ml Route: IV; Rate: 125 ml/hr; Site: left antecubital; rb1 19:46 Follow up: Response: No adverse reaction; IV Status: Infusion continued upon admission jd3 16:00 Drug: Pepcid 20 mg Route: IVP; Site: left antecubital; aa5 16:15 Follow up: Response: No adverse reaction rb1 16:16 Not Given (Physician Discretion): Lopressor (metoprolol TARTRATE) 50 mg PO once aa5 17:42 Drug: Magnesium Sulfate 2 grams Route: IVPB; Infused Over: 2 hrs; Site: left rb1 antecubital; 19:45 Follow up: Response: No adverse reaction; IV Status: Completed infusion jd3 17:54 Drug: NS 0.9% 500 ml Route: IV; Rate: bolus; Site: left antecubital; rb1 19:45 Follow up: Response: No adverse reaction; IV Status: Completed infusion; IV Intake: jd3 500ml Intake: 19:45 IV: 500ml; Total: 500ml. jd3 Outcome: 15:21 Decision to Hospitalize by Provider. kathleen 19:41 Admitted to Tele accompanied by [facility], via stretcher, room 426, with chart, Report jd3 called to Justa MONSON 19:41 Condition: stable 19:41 Instructed on the need for admit, Demonstrated understanding of instructions. 19:46 Patient left the ED. jd3 Signatures: Dispatcher [employer] Hoang Herndon MD MD cha Martinez, Eric em1 Giselle Barrera, RN RN aa5 Carolina Le RN RN rb1 Tab Adams RN RN jd3 Bobby Winter jp3 Corrections: (The following items were deleted from the chart) 15: 14:10 Immunization history: Adult Immunizations up to date, aa5 rb1 15: 14:10 Social history: Smoking status: Patient/guardian denies using tobacco, aa5 rb1 15: 14:10 Ebola Screening: Patient negative for fever greater than or equal to 101.5 rb1 degrees Fahrenheit, and additional compatible Ebola Virus Disease symptoms aa5 15: 14:10 BP 136 / 83; Pulse 82bpm; Resp 17bpm; Pulse Ox 100% RA; Temp 97.2F Temporal; rb1 68.04 kg Reported; Height 5 ft. 4 in. Reported; BMI: 25.7; Pain 0/10; aa5 15: 14:10 Abuse screen: Denies threats or abuse. [place] [id number] : 14:10 Nutritional screening: No deficits noted. [place] [id number] 14:10 Tuberculosis screening: No symptoms or risk factors identified. [place] [id number] : 14:10 Fall Risk No fall in past 12 months (0 pts). Secondary diagnosis (15 points) rb1 impaired mobility, IV access (20 points). Ambulatory Aid- Crutches/Cane/Walker (15 pts). Gait- Impaired (20 pts.). Mental Status- Oriented to own ability (0 pts). Total [place] Fall Scale indicates High Risk Score (45 or more points). Fall prevention measures have been instituted. Side Rails Up X 2 Placed Close to Nursing Station 1:1 Attendant Assigned Frequent Obs/Assessments Occuring Family Present and informed to notify staff if the need to leave the bedside As available patient and family educated on Fall Prevention Program and Strategies. [facility] : 14:10 Arm band placed on right wrist. [place] [id number] : 14:10 Patient has correct armband on for positive identification. Bed in low position. rb1 Call light in reach. Side rails up X 1. [facility] 14:10 Pulse ox on. NIBP on. [place] [id number] 14:10 Warm blanket given. [place] [address] 14:10 Presenting complaint: EMS states: Pt. is 79 yr. old, c/o of general weakness, rb1 denies fever and pain. HR was initially 154 but when the pt. stood to get on the stretcher HR was 94. History of A-fib, CHF, HTN, Diabetes Type II, high cholesterol. BS 110, vital signs were stable and she is afebrile. [facility] 14:10 Transition of care: patient was not received from another setting of care. [place] [address] 14:10 Onset of symptoms was June 06, 2019 [place] [address] 14:10 Risk Assessment: Do you want to hurt yourself or someone else? Patient reports no rb1 desire to harm self or others. [facility] 14:10 Initial Sepsis Screen: Does the patient meet any 2 criteria? No. Patient's rb1 initial sepsis screen is negative. Does the patient have a suspected source of infection? No. Patient's initial sepsis screen is negative. [facility] 14:10 Care prior to arrival: None. [place] [address] 14: Method Of Arrival: EMS: [facility] [place] [address] 14: Acuity: FABIANA 3 [place] [address] 14: General: Appears in no apparent distress. comfortable, Behavior is calm, rb1 cooperative, Denies fever, [facility] 14: Pain: Denies pain. [place] [address] 14:10 Neuro: Level of Consciousness is awake, alert, obeys commands, Oriented to [facility] person, place, situation, [facility] 14:10 Cardiovascular: Capillary refill < 3 seconds is brisk in bilateral fingers [place] [address] 14:10 Respiratory: Airway is patent Respiratory effort is even, unlabored, Respiratory rb1 pattern is regular, symmetrical, [facility] 14:10 GI: No signs and/or symptoms were reported involving the gastrointestinal system. [place] [id number] 14:10 : No signs and/or symptoms were reported regarding the genitourinary system. [facility] 14:10 Derm: Skin is pink, warm \T\ dry. [place] [address] 14:10 Musculoskeletal: Range of motion: intact in all extremities, [place] [id number]
--- NOTE | 2019-06-09 15:22 | EDPHYS ---
Physician Documentation [facility] Name: Hannah Coreas Age: 79 yrs Sex: Female : 1940 Arrival Date: 06/09/2019 Time: 14:17 Bed 2 Private MD: ED Physician Hoang Brown HPI: 06/09 15:12 This 79 yrs old Female presents to ER via EMS with complaints of General kathleen Weakness. 15:12 The patient presents with a history of heart racing. Context: The symptoms occur at [facility] rest, without known cause. Onset: The symptoms/episode began/occurred just prior to arrival. Duration: The patient or guardian reports a single episode, that is still ongoing. Modifying factors: The symptoms are aggravated by nothing. The symptoms are alleviated by remaining still, standing. Associated signs and symptoms: The patient has no apparent associated signs or symptoms. Severity of symptoms: At their worst the symptoms were mild in the emergency department the symptoms are unchanged. Historical: - Allergies: 14:10 Codeine; aa5 - Home Meds: 14:10 amlodipine 10 mg tab 1 tab once daily [Active]; Azithromycin Oral [Active]; memantine aa5 Oral [Active]; metformin 1,000 mg Oral tab 1 tab 2 times per day [Active]; Xarelto 20 mg Oral tab 1 tab once daily [Active]; hydralazine 50 mg Oral tab 1 tab 2 times per day [Active]; Lasix Oral [Active]; sotalol 120 mg Oral tab 1 tab 2 times per day [Active]; levothyroxine oral [Active]; potassium chloride 10 mEq Oral TbTQ 1 tab once daily [Active]; Trulicity subcutaneous subcutaneous [Active]; - PMHx: 14:10 Atrial Fib; COLON CA; Diabetes - IDDM; Hypertension; aa5 - PSHx: 14:10 ; aa5 - Immunization history:: Adult Immunizations up to date. - Social history:: Smoking status: Patient/guardian denies using tobacco. - Ebola Screening: : Patient negative for fever greater than or equal to 101.5 degrees Fahrenheit, and additional compatible Ebola Virus Disease symptoms. - Family history:: not pertinent. ROS: 15:12 Constitutional: Negative for fever, chills, and weight loss, Eyes: Negative for injury, kathleen pain, redness, and discharge, ENT: Negative for injury, pain, and discharge, Neck: Negative for injury, pain, and swelling, Respiratory: Negative for shortness of breath, cough, wheezing, and pleuritic chest pain, Abdomen/GI: Negative for abdominal pain, nausea, vomiting, diarrhea, and constipation, Back: Negative for injury and pain, : Negative for injury, bleeding, discharge, and swelling, MS/Extremity: Negative for injury and deformity, Neuro: Negative for headache, weakness, numbness, tingling, and seizure, Psych: Negative for depression, anxiety, suicide ideation, homicidal ideation, and hallucinations, Allergy/Immunology: Negative for hives, rash, and allergies, Endocrine: Negative for neck swelling, polydipsia, polyuria, polyphagia, and marked weight changes, Hematologic/Lymphatic: Negative for swollen nodes, abnormal bleeding, and unusual bruising. 15:12 Cardiovascular: Positive for 15:12 MS/extremity: Negative for acute changes, decreased range of motion, pain, swelling, tenderness. 15:12 Skin: Positive for pallor. Exam: 15:12 Constitutional: This is a well developed, well nourished patient who is awake, alert, kathleen and in no acute distress. Head/Face: Normocephalic, atraumatic. Eyes: Pupils equal round and reactive to light, extra-ocular motions intact. Lids and lashes normal. Conjunctiva and sclera are non-icteric and not injected. Cornea within normal limits. Periorbital areas with no swelling, redness, or edema. ENT: Nares patent. No nasal discharge, no septal abnormalities noted. Tympanic membranes are normal and external auditory canals are clear. Oropharynx with no redness, swelling, or masses, exudates, or evidence of obstruction, uvula midline. Mucous membranes moist. Neck: Trachea midline, no thyromegaly or masses palpated, and no cervical lymphadenopathy. Supple, full range of motion without nuchal rigidity, or vertebral point tenderness. No Meningismus. Chest/axilla: Normal chest wall appearance and motion. Nontender with no deformity. No lesions are appreciated. Cardiovascular: Regular rate and rhythm with a normal S1 and S2. No gallops, murmurs, or rubs. Normal PMI, no JVD. No pulse deficits. Respiratory: Lungs have equal breath sounds bilaterally, clear to auscultation and percussion. No rales, rhonchi or wheezes noted. No increased work of breathing, no retractions or nasal flaring. Abdomen/GI: Soft, non-tender, with normal bowel sounds. No distension or tympany. No guarding or rebound. No evidence of tenderness throughout. Back: No spinal tenderness. No costovertebral tenderness. Full range of motion. Female : Normal external genitalia. MS/ Extremity: Pulses equal, no cyanosis. Neurovascular intact. Full, normal range of motion. Neuro: Awake and alert, GCS 15, oriented to person, place, time, and situation. Cranial nerves II-XII grossly intact. Motor strength 5/5 in all extremities. Sensory grossly intact. Cerebellar exam normal. Normal gait. Psych: Awake, alert, with orientation to person, place and time. Behavior, mood, and affect are within normal limits. 15:12 Skin: Appearance: Color: pale, Temperature: normal temperature, Moisture: normal moisture, petechiae, not noted, ecchymosis, not noted, flushing, not noted, diaphoresis is not appreciated, swelling, is not appreciated. Vital Signs: 14:10 BP 136 / 83; Pulse 82; Resp 17; Temp 97.2(TE); Pulse Ox 100% on R/A; Weight 68.04 kg rb1 (R); Height 5 ft. 4 in. (162.56 cm) (R); Pain 0/10; 15:55 BP 136 / 90; Pulse 63; Resp 16 S; Pulse Ox 97% on R/A; aa5 16:55 BP 132 / 87; Pulse 83; Resp 18; Pulse Ox 97% on R/A; Pain 0/10; rb1 17:55 BP 132 / 74; Pulse 83; Resp 25; Pulse Ox 100% ; Pain 0/10; rb1 18:26 BP 120 / 86; Pulse 86; Resp 19; Pulse Ox 99% on R/A; Pain 0/10; rb1 14:10 Body Mass Index 25.75 (68.04 kg, 162.56 cm) rb1 15:55 NSR on monitor. notified of decreased HR and lopressor was cancelled. aa5 MDM: 14:22 Patient medically screened. [facility] 15:21 Data reviewed: vital signs, nurses notes, lab test result(s), EKG, radiologic studies, [facility] plain films. 06/09 14:25 Order name: Basic Metabolic Panel [facility] 06/09 14:25 Order name: CBC with Diff; Complete Time: 16:12 [facility] 06/09 14:25 Order name: LFT's [facility] 06/09 14:25 Order name: Magnesium [facility] 06/09 14:25 Order name: NT PRO-BNP [facility] 06/09 14:25 Order name: PT-INR; Complete Time: 16:38 [facility] 06/09 14:25 Order name: Troponin (emerg Dept Use Only) [facility] 06/09 14:25 Order name: XRAY Chest (1 view); Complete Time: 16:38 [facility] 06/09 14:25 Order name: Urine Culture [facility] 06/09 14:25 Order name: TSH [facility] 06/09 15:32 Order name: CBC with Automated Diff EDMD 06/09 15:32 Order name: CBC with Automated Diff [facility] 06/09 15:37 Order name: CBC Smear Scan; Complete Time: 16:12 EDMD 06/09 18:01 Order name: Vitamin B12 Level [facility] 06/09 14:25 Order name: EKG; Complete Time: 14:28 [facility] 06/09 14:25 Order name: Cardiac monitoring; Complete Time: 14:39 [facility] 06/09 14:25 Order name: EKG - Nurse/Tech; Complete Time: 14:40 [facility] 06/09 14:25 Order name: IV Saline Lock; Complete Time: 14:40 [facility] 06/09 14:25 Order name: Labs collected and sent; Complete Time: 14:40 [facility] 06/09 14:25 Order name: O2 Per Protocol; Complete Time: 14:39 [facility] 06/09 15:32 Order name: CONS Pharmacy Consult [facility] 06/09 15:32 Order name: Regular [facility] 06/09 17:30 Order name: CT Stone Protocol [facility] 06/09 18:33 Order name: CT EDMD 06/09 14:25 Order name: O2 Sat Monitoring; Complete Time: 14:39 [facility] 06/09 15:10 Order name: Labs - recollect needed: blue top and chemistries hemolyzed; Complete Time: em1 16:16 Administered Medications: 05:53 Drug: Rocephin 1 grams Route: IV; Rate: per protocol; Site: left antecubital; rb1 18:25 Follow up: Response: No adverse reaction; IV Status: Completed infusion; Medication was rb1 administered at 1753, not 0553 14:53 Drug: NS 0.9% 1000 ml Route: IV; Rate: 125 ml/hr; Site: left antecubital; rb1 19:46 Follow up: Response: No adverse reaction; IV Status: Infusion continued upon admission jd3 16:00 Drug: Pepcid 20 mg Route: IVP; Site: left antecubital; aa5 16:15 Follow up: Response: No adverse reaction rb1 16:16 Not Given (Physician Discretion): Lopressor (metoprolol TARTRATE) 50 mg PO once aa5 17:42 Drug: Magnesium Sulfate 2 grams Route: IVPB; Infused Over: 2 hrs; Site: left rb1 antecubital; 19:45 Follow up: Response: No adverse reaction; IV Status: Completed infusion jd3 17:54 Drug: NS 0.9% 500 ml Route: IV; Rate: bolus; Site: left antecubital; rb1 19:45 Follow up: Response: No adverse reaction; IV Status: Completed infusion; IV Intake: jd3 500ml Disposition: 06/09/19 15:21 Hospitalization ordered by Brett Kessler for Inpatient Admission. Preliminary diagnosis are Weakness, Palpitations, Atrial fibrillation and flutter, Type 1 diabetes mellitus, Hypomagnesemia, Unspecified kidney failure. - Bed requested for Telemetry/MedSurg (Inpatient). - Status is Inpatient Admission. jd3 - Condition is Fair. - Problem is new. - Symptoms have improved. UTI on Admission? No Signatures: Dispatcher [employer] EDYulisa Sy RN RN dw Anderson, Corey, MD MD cha Martinez, Eric [facility] Giselle Barrera RN RN aa5 Carolina Le, ERMIAS RN rb1 Tab Adams RN RN jd3 Corrections: (The following items were deleted from the chart) 15:06 14:10 Immunization history: Adult Immunizations up to date, aa5 rb1 15:06 14:10 Social history: Smoking status: Patient/guardian denies using tobacco, aa5 rb1 15:06 14:10 Ebola Screening: Patient negative for fever greater than or equal to 101.5 rb1 degrees Fahrenheit, and additional compatible Ebola Virus Disease symptoms aa5 17:14 15:21 Hospitalization Ordered by Brett Kessler MD for Inpatient Admission. [place] Preliminary diagnosis is Weakness; Palpitations; Atrial fibrillation and flutter; Type 1 diabetes mellitus. Bed requested for Telemetry/MedSurg (Inpatient). Status is Inpatient Admission. Condition is Fair. Problem is new. Symptoms have improved. UTI on Admission? No. kathleen 17:25 17:14 06/09/2019 15:21 Hospitalization Ordered by Brett Kessler MD for Inpatient kathleen Admission. Preliminary diagnosis is Weakness; Palpitations; Atrial fibrillation and flutter; Type 1 diabetes mellitus. Bed requested for Telemetry/MedSurg (Inpatient). Status is Inpatient Admission. Condition is Fair. Problem is new. Symptoms have improved. UTI on Admission? No. dw 19:46 17:25 06/09/2019 15:21 Hospitalization Ordered by Brett Kessler MD for Inpatient jd3 Admission. Preliminary diagnosis is Weakness; Palpitations; Atrial fibrillation and flutter; Type 1 diabetes mellitus; Hypomagnesemia; Unspecified kidney failure. Bed requested for Telemetry/MedSurg (Inpatient). Status is Inpatient Admission. Condition is Fair. Problem is new. Symptoms have improved. UTI on Admission? No. kathleen
[2019-06-09] MEDS ORDERED: ONDANSETRON 4 MG/2 ML VIAL IV PRN (15:28)
[2019-06-09 15:36] LABS: Urine White Blood Cell Casts OK
[2019-06-09 15:37] LABS: Blood Morphology Comment NOTED (NOT SEEN); Platelet Estimate ADEQ; Poikilocytosis 1+
[2019-06-09] MEDS ORDERED: FAMOTIDINE 20 MG/2 ML VIAL IV ONE (15:53)
--- NOTE | 2019-06-09 16:20 | RAD REPORT ---
EXAM DESCRIPTION: RAD - Chest Single View - 06/09/2019 2:50 pm CLINICAL HISTORY: Cough COMPARISON: April 07, 2019 TECHNIQUE: AP portable chest image was obtained 1446 hours . FINDINGS: No peripheral mass or consolidation. Linear stranding is seen in the central aspect of eac h chest similar to comparison. Heart and vasculature are normal. No measurable pleural effusion and n o pneumothorax. No acute bony abnormality seen. No acute aortic findings suspected. IMPRESSION: Chronic interstitial lung changes are present not substantially different from compariso n.
[2019-06-09 16:23] LABS: Protime INR 1.88
--- NOTE | 2019-06-09 16:45 | P.HP ---
Certification for Inpatient Patient admitted to: Observation With expected LOS: <2 Midnights Practitioner: I am a practitioner with admitting privileges, knowledge of patient current condition, hospital course, and medical plan of care. Services: Services provided to patient in accordance with Admission requirements found in Title 42 Section 412.3 of the Code of Federal Regulations Patient History Date of Service: 06/09/19 Reason for admission: Weakness AFib History of Present Illness: Patient is 79 years of age with a history of AFib according to the relatives she has suddenly became weak some shortness of breath was very tachycardic history of atrial fibrillation compliant with her medication according to the relatives she is not eating much does not ambulate seemed to be rather withdrawn is on or do much patient reverted back to sinus rhythm feels very weak Allergies codeine [Codeine] Allergy (Verified 07/28/15 01:01) Itching/Hives/Rash Home Medications: Amlodipine [Norvasc*] 10 mg PO DAILY 10/19/12 Furosemide [Lasix*] 40 mg PO SEECOM 10/19/12 Hydralazine [Apresoline*] 50 mg PO BID 10/19/12 Metformin ER [Glucophage ER*] 1,000 mg PO BID 10/19/12 Potassium Chloride [K-Dur] 10 meq PO DAILY 10/19/12 Rivaroxaban [Xarelto] 20 mg PO DAILY #30 tablet 07/29/15 Memantine HCl 10 mg PO BID 03/28/19 Sotalol HCl [Sotalol] 120 mg PO BID #60 tablet 03/29/19 - Past Medical/Surgical History Diabetic: Yes -: Hypertension -: Atrial fibrillation on chronic anti coagulation therapy -: Diabetes mellitus type 2, insulin-dependent -: History of pulmonary nodules -: History of colon cancer -: Hyperlipidemia -: Dementia -: Urinary incontinence -: Hypothyroidism -: Tubal ligation -: Cholecystectomy -: Hysterectomy -: Partial colectomy -: VARICOSE VEIN SX Psychosocial/ Personal History: Patient lives at home with son - Family History Brother -: Heart disease, Hypertension, Diabetes Mother -: Diabetes - Social History Alcohol use: No CD- Drugs: No Caffeine use: No Review of Systems 10-point ROS is otherwise unremarkable General: Weakness Neurological: Weakness Physical Examination - Vital Signs Temperature: 97.2 F Blood Pressure: 136/86 Pulse: 82 Respirations: 17 Pulse Ox (%): 100 - Physical Exam General: Alert, In no apparent distress, Oriented x3 HEENT: Atraumatic Neck: Supple Respiratory: Clear to auscultation bilaterally Cardiovascular: No edema, Regular rate/rhythm, Normal S1 S2 Gastrointestinal: Normal bowel sounds, Soft and benign Musculoskeletal: No clubbing, No swelling Integumentary: No rashes, No breakdown - Studies Laboratory Data (last 24 hrs) 06/09/19 14:40: WBC 11.8 H, Hgb 12.0, Hct 36.6, Plt Count 228 Assessment and Plan - Problems (Diagnosis) (1) Atrial fibrillation Current Visit: Yes Status: Acute Plan: Patient is 79 years of age with a history of AFib started feeling very weak patient had a high heart rate and then nicked converted spontaneously back to sinus rhythm compliant with her medication according to the relatives patient is rather withdrawn does not need much are ambulate complains of weakness and shortness of breath is compliant with her medication list not verified was checked a tsh level B12 level labs are pending possible discharge tomorrow Qualifiers: Atrial fibrillation type: paroxysmal Qualified Code(s): I48.0 - Paroxysmal atrial fibrillation Discharge Plan: Home Plan to discharge in: 24 Hours - Advance Directives Does patient have a Living Will: No Does patient have a Durable POA for Healthcare: No
[2019-06-09 16:49] LABS: ALT/SGPT 47 U/L (12-78); AST/SGOT 20 U/L (15-37); Albumin 3.2 g/dL (3.4-5.0); Alkaline Phosphatase 94 U/L (45-117); BUN Blood Urea Nitrogen 32 mg/dL (7-18); Bicarbonate 18 mmol/L (21-32); Bilirubin Direct 0.3 mg/dL (0-0.2); Bilirubin Total 0.8 mg/dL (0.2-1.0); Glucose Level 234 mg/dL (74-106); NT PRO-BNP 18543 pg/mL (<450); Potassium 4.1 mmol/L (3.5-5.1); Protein, Total 7.5 g/dL (6.4-8.2); Sodium Level 136 mmol/L (136-145); Thyroid Stimulating Hormone 0.591 uIU/mL (0.360-3.740); Troponin (Emerg Dept Use Only) < 0.02 ng/mL (0.0-0.045)
[2019-06-09 16:51] LABS: Magnesium 1.4 mg/dL (1.8-2.4)
[2019-06-09] MEDS ORDERED: Magnesium Sulfate 2gm IVPB 2 G/50 ML BAG IV ONE (17:27)
[2019-06-09] MEDS ORDERED: CEFTRIAXONE/SWI 1gm 1 GM/10 ML SYR ONE (17:48)
--- NOTE | 2019-06-09 18:33 | RAD REPORT ---
EXAM DESCRIPTION: CT - Stone Protocol - 06/09/2019 6:08 pm CLINICAL HISTORY: Weakness, abdominal pain, colon cancer history COMPARISON: CT imaging July 2015 TECHNIQUE: Axial 5 mm thick images were obtained without oral or IV contrast. The [id number] span s the entirety of the system including the uppermost abdomen and lung bases. All CT scans are performed using dose optimization technique as appropriate and may include automated exposure control or mA/KV adjustment according to patient size. FINDINGS: No hydronephrosis is present and no obstructing ureteral calculi. No suspicious renal mass es. Isodense masses and pyelonephritis are not excluded on a stone protocol CT scan. No urinary bladd er suspicious finding. No significant adrenal finding. Bilateral renal cysts are present. Imaged portions of the liver, spleen and pancreas show no suspicious findings on non-contrast imaging . Cholecystectomy clips are present. No biliary tree dilatation. No dilated bowel loops or focal bowel wall thickening. Rectosigmoid anastomotic site shows no acute f inding. Diverticulosis is minimal. No hernia, mass or bulky lymphadenopathy noted. No free air, free fluid or inflammatory stranding. No omental thickening. Prominent disc and bone degenerative changes are present. The 70- 80% L1 compression fracture is note d but appears to be chronic. There is bridging ossification across the margins of the disc. No pathol ogic component. IMPRESSION: Noncontrast CT abdomen and pelvis imaging shows no acute or emergent finding. Nonacute findings detailed in the body of the report. Isodense masses and pyelonephritis are not excluded on stone protocol technique.
[2019-06-09 20:41] VITALS: BMI 23.2
[2019-06-10] MEDS ORDERED: MAGNESIUM SULFATE 1 gm IVPB 1 GM/100 ML BAG IV ONE (00:18)
[2019-06-10 01:55] VITALS: TEMP 97.2
[2019-06-10] MEDS ORDERED: Magnesium Sulfate 2gm IVPB 2 G/50 ML BAG IV ONE (03:42)
--- NOTE | 2019-06-10 03:58 | P.PN ---
Subjective Date of Service: 06/10/19 Primary Care Provider: Dr. Cunningham Chief Complaint: Weakness AFib Subjective: Other (Came to the room after a code blue called. Patient had multiple focal V-tach. Patient unresponsive. Resuscitation initiated. EKG showed V-tach with some episodes of torsades. The patient was shocked once. Pulse obtained. Patient currently stable at this time. Patient transferred to ICU.) Physical Examination - Vital Signs Temperature: 97.2 F Blood Pressure: 127/60 Pulse: 69 Respirations: 16 Pulse Ox (%): 97 - Physical Exam General: Alert HEENT: Atraumatic Neck: Supple Respiratory: Clear to auscultation bilaterally, Normal air movement Cardiovascular: Regular rate/rhythm Neurological: Normal strength at 5/5 x4 extr, Normal tone - Studies Laboratory Data (last 24 hrs) 06/09/19 14:40: WBC 11.8 H, Hgb 12.0, Hct 36.6, Plt Count 228 Medications List Reviewed: Yes Assessment & Plan Discharge Plan: Home Plan to discharge in: Greater than 2 days - Code Status/Comfort Care Code Status Assessed: Yes (Addressed with family member. Patient is DNR) Physician Review Additional Text: Impression: Cardiac arrest with multifocal feedback and torsades, patient resuscitated now normal sinus rhythm AFib with RVR on chronic anticoagulation therapy Acute on chronic renal disease stage III likely dehydration Hyperlipidemia Dementia B12 deficiency Diabetes mellitus type 2 non-insulin dependent with hyperglycemia Moderate protein malnutrition Plan: Cardiac arrest with multifocal feedback and torsades, patient resuscitated now normal sinus rhythm: Patient was resuscitated after code blue initiated. Patient received chest compressions and 1 shock. Patient returned to normal sinus rhythm. Patient now alert and in sinus rhythm. Patient transferred to ICU. Plan of care discussed with a family member present, during and after code. Family member mentioned that they had discussed advanced directives last night. Patient desired to be DNR. Will change advanced directives to DNR. Family member mentions that the patient may be intubated if required. This is primarily to allow other family members to come and potentially pay last respects. Cardiology consulted to further address. Will order echocardiogram. Will provide 2 g magnesium IV now. Will monitor electrolytes and provide replacement. Will start IV fluids due to acute on chronic renal failure. Will continue to monitor cardiac enzymes. Will obtain EKG. Patient now in sinus rhythm. May need to readdress with the patient and family about the status of to intubate or do not intubate in the near future. Family member reports that her condition has declined. Will need to consider hospice at discharge if her condition continues to decline. Dr. Yeboah-hospitalists will resumed care. AFib with RVR on chronic anticoagulation therapy: Patient presented with increased fatigue and AFib with RVR in the emergency room. This resolved Continue with Betapace and Seroquel. Acute on chronic renal disease stage III likely dehydration: Will start IV fluids. Will monitor and adjust electrolytes. Hyperlipidemia: Continue with medication Dementia: Continue with medication B12 deficiency: Will provide B12 and folic acid. Diabetes mellitus type 2, non-insulin dependent with hyperglycemia: Will continue Accu-Cheks and provide sliding scale. Moderate protein malnutrition: Will provide nourishment and IV fluids. Time Spent Managing Pts Care (In Minutes): 55
[2019-06-10] MEDS ORDERED: PROMETHAZINE INJ 25 MG/ML AMP ONE (04:05)
[2019-06-10 04:47] LABS: Absolute Lymphocytes (CBC) 1.3 K/uL (0.7-4.9); Basophils % 0.5 % (0-1.3); Hematocrit 35.9 % (36.0-45.0); Lymphocytes % 14.1 % (15.3-44.8); MPV 10.7 fL (7.6-11.3); RBC Red Blood Cell Count 3.81 M/uL (3.86-4.86)
[2019-06-10] MEDS ORDERED: PROMETHAZINE INJ 25 MG/ML AMP IV ONE (04:50)
[2019-06-10] MEDS ORDERED: NA CHLORIDE 0.9% 1,000 ML IV SCH (05:00)
[2019-06-10 05:05] LABS: Magnesium 2.4 mg/dL (1.8-2.4); Potassium 4.4 mmol/L (3.5-5.1)
[2019-06-10 05:12] LABS: CKMB Creatine Kinase MB 1.4 ng/mL (0.3-3.6); Troponin I 0.06 ng/mL (0.0-0.045)
[2019-06-10] MEDS ORDERED: TRAMADOL HCL 50 MG TAB PO PRN (06:26)
[2019-06-10] MEDS ORDERED: HYDROCODONE/APAP 5/325 MG TAB PO PRN (06:28)
[2019-06-10 06:40] VITALS: BP 117/75
--- NOTE | 2019-06-10 07:43 | EKG ---
Test Date: 2019-06-09 Test Time: 14:27:35 Support Staff: CARLITO MEASUREMENT RESULTS: Intervals: Rate: 82 NE: 174 QRSD: 130 QT: 446 QTc: 521 [place]: P: 37 NE: 174 QRS: -61 T: -35 INTERPRETIVE STATEMENTS: Normal sinus rhythm Right bundle branch block Left anterior fascicular block Bifascicular block Abnormal ECG Compared to ECG 04/07/2019 17:55:24 Atrial fibrillation no longer present Myocardial infarct finding no longer present Bifascicular block still present Electronically Signed On 06-10-19 07:42:48 VEST MAKER by Barron Sauceda
--- NOTE | 2019-06-10 08:21 | RAD REPORT ---
EXAM DESCRIPTION: RAD - Chest Single View - 06/10/2019 4:39 am CLINICAL HISTORY: status post cardiac arrest Chest pain. COMPARISON: Chest Single View dated 06/09/2019; Chest Single View dated 04/07/2019; Chest Pa And Lat (2 Views) dated 03/28/2019; Chest Single View dated 03/27/2019; Stone Protocol dated 06/09/2019 FINDINGS: Portable technique limits examination quality. Mild interstitial pulmonary edema seen. The heart is enlarged in size with widening of the upper medi astinum. Bilateral pleural effusions are suspected.If clinically indicated, follow-up CT chest may be of value for further assessment.
[2019-06-10] MEDS ORDERED: SOTALOL HCL 80 MG TAB PO SCH (09:00)
[2019-06-10] MEDS ORDERED: LEVOTHYROXINE SOD 0.075 MG TAB PO SCH (09:00)
[2019-06-10] MEDS ORDERED: HYDRALAZINE HCL 25 MG TABLET PO SCH ×2 (09:00)
[2019-06-10] MEDS ORDERED: FUROSEMIDE 40 MG TABLET PO SCH (09:00)
[2019-06-10] MEDS ORDERED: MEMANTINE HCL 10 MG TABLET PO SCH (09:00)
--- NOTE | 2019-06-10 10:41 | EKG ---
Test Date: 2019-06-10 Test Time: 05:13:01 Algologist: JOSE MEASUREMENT RESULTS: Intervals: Rate: 84 WA: 160 QRSD: 136 QT: 566 QTc: 668 [place]: P: -9 WA: 160 QRS: -62 T: -61 INTERPRETIVE STATEMENTS: Normal sinus rhythm Left axis deviation Right bundle branch block T wave abnormality, consider inferior ischemia T wave abnormality, consider anterolateral ischemia Anterior infarct Abnormal ECG Compared to ECG 06/09/2019 14:27:35 T-wave abnormality now present Possible ischemia now present Electronically Signed On 06-10-19 10:41:04 AIR BRAKE MECHANIC by Barron Sauceda
[2019-06-10] MEDS ORDERED: MORPHINE 2 MG/ML SYR ONE (10:45)
--- NOTE | 2019-06-10 10:56 | ECHO ---
HEIGHT: 5 ft 3 in WEIGHT: 131 lb 0 oz DATE OF STUDY: 06/10/[address]: Brett Kessler MD 2-DIMENSIONAL: YES M.MODE: YES DOPPLER: YES COLOR FLOW: YES TDS: PORTABLE: DEFINITY: BUBBLE STUDY: DIAGNOSIS: ATRIAL FIBRILLATION CARDIAC HISTORY: CATHERIZATION: NO SURGERY: NO PROSTHETIC VALVE: NO PACEMAKER: NO MEASUREMENTS (cm) DIASTOLIC (NORMALS) SYSTOLIC (NORMALS) IVSd 0.9 (0.6-1.2) LA Diam 4.5 (1.9-4.0) LVEF 13% LVIDd 4.4 (3.5-5.7) LVIDs 4.2 (2.0-3.5) %FS 6% LVPWd 1.1 (0.6-1.2) Ao Diam 2.5 (2.0-3.7) 2 DIMENSIONAL ASSESSMENT: RIGHT ATRIUM: DILATED LEFT ATRIUM: DILATED RIGHT VENTRICLE: NORMAL LEFT VENTRICLE: NORMAL TRICUSPID VALVE: NORMAL MITRAL VALVE: NORMAL PULMONIC VALVE: NORMAL AORTIC VALVE: NORMAL PERICARDIAL EFFUSION: SMALL AORTIC ROOT: NORMAL LEFT VENTRICULAR WALL MOTION: APICAL, SEPTAL AKINESIS. SEVERE HYPOKINESIS ELSEWHERE. DOPPLER/COLOR FLOW: TRACE MITRAL REGURGITATION. MILD AORTIC REGURGITATION. MODERATE TRICUSPID REGURGITATION. ESTIMATED RIGHT VENTRICULAR SYSTOLIC PRESSURE 47 mmHg (MILD PULMONARY HYPERTENSION). COMMENTS: SEVERELY DEPRESSED LEFT VENTRICULAR EJECTION FRACTION. DILATED LEFT AND RIGHT ATRIUM. SMALL PERICARDIAL EFFUSION. TRACE MITRAL REGURGITATION. MILD AORTIC REGURGITATION. MODERATE TRICUSPID REGURGITATION. MILD PULMONARY HYPERTENSION. TECHNOLOGIST: LASHONDA VICENTE
--- NOTE | 2019-06-10 12:48 | CON ---
History Of Present Illness: Ms. Coreas is 79. She came to the hospital and she was in sinus rhythm. Her chief complaint when she came to the hospital yesterday was weakness and palpitations. She was found have hypomagnesemia. Since being in the hospital, she has had numerous runs of V-tach and they look like it is torsades de pointes consistent with long QT and antiarrhythmic drugs. She had been on sotalol 80 b.i.d. for several years. We increased it to 120 b.i.d. a short time ago and now we se e torsades. She was not on any erythromycin or Floxin drug or antifungal agents when this happened. The patient has a history of paroxysmal atrial fibrillation. She is in sinus rhythm now. She has u nderlying dyslipidemia, hypertension, diabetes. Allergies: SHE REPORTS AN ALLERGY TO CODEINE. Social History: There is no alcohol or tobacco use. Physical Examination: Vital Signs: 5 feet and 3 inches, 131 pounds. General: She is awake, alert, oriented. She looks a little bit confused. Lungs: Clear. Heart: Reveals a regular rate and rhythm. Abdomen: Soft. Extremities: No significant edema, cyanosis, clubbing. Imaging: An echocardiogram from very recently shows normal ejection fraction, mild aortic regurgitat ion. Impression: The patient is having torsades de pointes from antiarrhythmic drugs and hypomagnesemia. I think we will try and treat her atrial fibrillation with rate control and anticoagulation rather t [place] trying to maintain sinus rhythm, although all present options including going through atrial fibrillation ablation or an atrioventricular node ablation wit h pacemaker placement. BOLA/HITESH Voice ID: [id number] Report ID: [id number]
--- NOTE | 2019-06-10 13:07 | P.PN ---
Subjective Date of Service: 06/10/19 Primary Care Provider: Dr. Cunningham Chief Complaint: Weakness AFib Patient transferred to the ICU due to overdose secondary to torsades. She had hypomagnesemia which was corrected. Magnesium level improved to 2.4. She again developed runs of V-tach. She was made DNR and DNI overnight I had a conversation with the patient and her family and they wanted to proceed with comfort measures. Physical Examination - Vital Signs Temperature: 97.2 F Blood Pressure: 117/75 Pulse: 83 Respirations: 23 Pulse Ox (%): 100 - Physical Exam General: Other (Awake) HEENT: Atraumatic, Mucous membr. moist/pink Neck: Supple, JVD not distended Respiratory: Clear to auscultation bilaterally, Normal air movement Cardiovascular: No edema, Normal pulses, Irregular heart rate/rhythm Capillary refill: <2 Seconds Gastrointestinal: Normal bowel sounds, Soft and benign, No tenderness Musculoskeletal: No swelling Integumentary: No rashes Neurological: Other (No focal deficits.) - Studies Laboratory Data (last 24 hrs) 06/09/19 23:46: Magnesium 1.7 L 06/09/19 15:57: PT 21.6 H, INR 1.88 06/09/19 15:57: Sodium 136, Potassium 4.1, BUN 32 H, Creatinine 1.40 H, Glucose 234 H, Magnesium 1.4 L*, Total Bilirubin 0.8, AST 20, ALT 47, Alkaline Phosphatase 94 06/09/19 14:40: WBC 11.8 H, Hgb 12.0, Hct 36.6, Plt Count 228 Medications List Reviewed: Yes Assessment And Plan - Current Problems (Diagnosis) (1) Ventricular tachycardia Current Visit: Yes Status: Acute (2) Atrial fibrillation Current Visit: Yes Status: Acute Qualifiers: Atrial fibrillation type: paroxysmal Qualified Code(s): I48.0 - Paroxysmal atrial fibrillation (3) Diabetes mellitus type II, non insulin dependent Onset Date: 08/10/15 Current Visit: No Status: Acute - Plan Patient of pulmonary decided to proceed with comfort measures. She developed another cardiac arrest, became unresponsive and pulseless. Patient within a few minutes. Pupils became fixed and dilated, no cardiopulmonary activity. Patient declared . Physician Review Additional Text: I
[2019-06-10 15:25] VITALS: O2SAT 98
[2019-06-10] MEDS ORDERED: RIVAROXABAN 20 MG TABLET PO SCH (21:00)
--- NOTE | 2019-06-12 18:23 | P.DS ---
Admission Date: 06/10/19 Discharge Date: 06/10/19 Primary Care Provider: Dr. Cunningham Disposition: Reason for Admission: Weakness AFib - Problems (1) Ventricular tachycardia Status: Acute (2) Atrial fibrillation Status: Acute Qualifiers: Atrial fibrillation type: paroxysmal Qualified Code(s): I48.0 - Paroxysmal atrial fibrillation (3) Diabetes mellitus type II, non insulin dependent Onset Date: 08/10/15 Status: Acute Brief History of Present Illness: 79-year-old woman with a history of atrial fibrillation was brought to the emergency department due shortness of breath. Family reported progressive decline in functional status, decline in oral intake and generalized weakness. Patient was found to be in atrial fibrillation with rapid ventricular rate she was therefore admitted for further management. Hospital Course: She was admitted to the medical floor, treated with some supportive measures including IV hydration and placed on her home dose sotalol. The patient was noted to be pulseless, became unresponsive, code blue was called, patient noted to have had runs of V-tach and EKG demonstrating runs of torsades, ACLS carried out, she was shocked once with return of spontaneous circulation and subsequently transferred to the intensive care unit. The patient was made DNI and DNR. She later developed further runs of V-tach and . Vital Signs/Physical Exam: Temp Pulse Resp BP Pulse Ox 97.2 F 83 23 H 117/75 100 06/10/19 13:07 06/10/19 13:07 06/10/19 13:07 06/10/19 13:07 06/10/19 13:07 Laboratory Data at Discharge: WBC 9.5 K/uL (4.3-10.9) D 06/10/19 04:13 Hgb 11.8 g/dL (12.0-15.0) L 06/10/19 04:13 Hct 35.9 % (36.0-45.0) L 06/10/19 04:13 Plt Count 224 K/uL (152-406) 06/10/19 04:13 PT 21.6 SECONDS (9.5-12.5) H 06/09/19 15:57 INR 1.88 06/09/19 15:57 Sodium 133 mmol/L (136-145) L 06/10/19 04:13 Potassium 4.4 mmol/L (3.5-5.1) 06/10/19 04:13 BUN 35 mg/dL (7-18) H 06/10/19 04:13 Creatinine 1.38 mg/dL (0.55-1.3) H 06/10/19 04:13 Glucose 288 mg/dL (74-106) H 06/10/19 04:13 Magnesium 2.4 mg/dL (1.8-2.4) D 06/10/19 04:13 Total Bilirubin 0.8 mg/dL (0.2-1.0) 06/09/19 15:57 AST 20 U/L (15-37) 06/09/19 15:57 ALT 47 U/L (12-78) 06/09/19 15:57 Alkaline Phosphatase 94 U/L (45-117) 06/09/19 15:57 Troponin I 0.06 ng/mL (0.0-0.045) H 06/10/19 04:13 Home Medications: Furosemide [Lasix*] 40 mg PO DAILY 10/19/12 Hydralazine [Apresoline*] 50 mg PO BID 10/19/12 Metformin ER [Glucophage ER*] 1,000 mg PO BID 10/19/12 Potassium Chloride [K-Dur] 10 meq PO DAILY 10/19/12 Memantine HCl 10 mg PO BID 03/28/19 Sotalol HCl [Sotalol] 120 mg PO BID #60 tablet 03/29/19 Dulaglutide [Trulicity] 1 appl SQ SEECOM 06/09/19 Levothyroxine Sodium 1 tab PO DAILY 06/09/19 Rivaroxaban [Xarelto] 20 mg PO BEDTIME 06/09/19
== END 2019-06-10 11:10 | disposition expired | DRG 309 ==
LOC: SUPCPDRO 14:13 → ER 14:13 → ERHOLD 15:29 → 4TH 18:31 → 3RD-ICU 06-10 03:40 → OBSVTOIN 06-10 03:46
PROVIDERS: ADMIT Internal Medicine Sleep Medicine; ATTEND Internal Medicine
PROC: 0BH17EZ Insertion of Endotracheal Airway into Trachea, Via Natural or Artificial Opening (ICD-10-PCS; principal; 2019-06-10)
PROC: 5A1945Z Respiratory Ventilation, 24-96 Consecutive Hours (ICD-10-PCS; 2019-06-10)
DX: I48.0 Paroxysmal atrial fibrillation (principal); N17.9 Acute kidney failure, unspecified; E44.0 Moderate protein-calorie malnutrition; I47.2 Ventricular tachycardia; I46.9 Cardiac arrest, cause unspecified; I12.9 Hypertensive chronic kidney disease with stage 1 through stage 4 chronic kidney disease, or unspecified chronic kidney disease; N18.3 Chronic kidney disease, stage 3 (moderate); E11.65 Type 2 diabetes mellitus with hyperglycemia; E11.22 Type 2 diabetes mellitus with diabetic chronic kidney disease; E83.42 Hypomagnesemia; E86.0 Dehydration; E78.5 Hyperlipidemia, unspecified; F03.90 Unspecified dementia, unspecified severity, without behavioral disturbance, psychotic disturbance, mood disturbance, and anxiety; E53.8 Deficiency of other specified B group vitamins; Z51.5 Encounter for palliative care; Z66 Do not resuscitate; Z79.01 Long term (current) use of anticoagulants; Z79.4 Long term (current) use of insulin; Z68.23 Body mass index [BMI] 23.0-23.9, adult
CPT/HCPCS: 36415; 71045; 74176; 76377; 80048; 80076; 82553; 82607; 82947; 83735; 83880; 84443; 84484; 85025; 85610; 93005; 93306; 94760; 96365; 96366; 96368; 96375; 99285; G0378; J0171; J0696; J2270; J2405; J2550; J3475; J7030